=== PATIENT | female | born 1940 | race Caucasian/White ===

== ENCOUNTER → 2018-04-08 07:06 | Outpatient (CLI) | payer MEDICARE, SELFPAY ==
--- NOTE | 2018-04-08 07:06 | DT_ITS ---
This patient was seen during an EMR downtime April 05, 2018 - April 12, 2018. This patient may have a combination of paper and electronic documentation or all paper documentation. All documentation is viewable within the e-chart portion of [facility] for each patient visit.
--- NOTE | 2018-04-08 07:09 | CT_ITS ---
STUDY: CT SOFT TISSUE NECK WITH AND WITHOUT CONTRAST REASON FOR EXAM: Female, 78 years old. Right mandibular mass present for months. RADIATION DOSAGE (If Supplied By Facility): CTDIvol = ( 9.12 ) mGy, DLP = ( 427.01 ) mGycm TECHNIQUE: The patient was scanned in a multi-detector CT scanner. High resolution transaxial imaging was performed prior to and following intravenous administration of 75ml ml of Isovue 370 contrast material. Sagittal and coronal images were reconstructed. Individualized dose optimization techniques were used for this CT. COMPARISON: None. FINDINGS: Normal bilateral parotid glands. Normal bilateral starter mechanic spaces. Normal bilateral parapharyngeal spaces. Normal bilateral carotid spaces. Significant artifacts are seen from teeth fillings obscuring the submandibular regions. There is a small nodule in the subcutaneous fat on the right side of the maxilla measuring about 1.3 cm (images 48-53 series 105). Normal visualized nasopharynx. Normal retropharyngeal space. Normal perivertebral space. Normal visualized bilateral faucial tonsils. The visualized tongue, tongue base and oropharynx are normal. The visualized cervical lymph nodes (levels I-) are within normal size limits, and maintain normal morphology. There is no demonstrated solid or cystic mass lesion. There is no abnormal contrast enhancement. Normal epiglottis, bilateral vallecula and hypopharynx. The pre-epiglottic and paraglottic adipose spaces are normal. Normal visualized bilateral piriform sinuses, aryepiglottic folds, vocal cords, and arytenoid-cricoid articulations. Normal subglottic trachea. Normal bilateral lobes of the thyroid gland. Normal visualized pulmonary apices. Normal visualized paranasal sinuses. There is multilevel degenerative changes of the cervical spine. There is straightening of the cervical spine. CT/Soft Tissue Neck W/WO Contrast IMPRESSION: Small nodule on the right side of the maxilla as described above which may represent prominent node. Otherwise no demonstrated abnormality. Electronically Signed: Sascha Yusuf MD at 11:14 EDT Tel , Service support ,
== END ==
PROVIDERS: Family Provider Internal Medicine; PCP Internal Medicine; Visit Provider Internal Medicine
DX: R22.0 Localized swelling, mass and lump, head (principal)
CPT/HCPCS: 70492; Q9967

== ENCOUNTER 2019-01-14 05:28 | Emergency (ER) | payer MEDICARE, SELFPAY ==
[2019-01-14 05:29] VITALS: BP 141/60; PULSE 65; RESP 18; TEMP 36.9; O2SAT 100; BMI 21.2
--- NOTE | 2019-01-14 05:40 | ED.VIS.GEN ---
History of Present Illness Chief Complaint: Weakness Informant: Patient Narrative: Patient stated she developed diarrhea this evening before bed around late evening. She has had approximately 5 episodes of loose watery diarrhea. She is been having difficulty getting to the bathroom and her is been having to clean her up. She feels weak and fatigued from it. No vomiting. No nausea. No abdominal pain. No recent antibiotics. No history of C. difficile. No sick contacts. No fevers or chills. She had a normal day otherwise yesterday. She is unsure why this happened. She did not eat anything undercooked or that could have caused this per patient. She has not had this before. 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 No chemotherapy during that time. Past Medical History - Allergies and Home Meds Allergies/Adverse Reactions: Allergies No Known Allergies Allergy (Verified 01/14/19 05:35) Primary Care Physician: Kayley Desir MD [Primary Care Provider] - Prior records reviewed: Yes Past Medical History: - - , Surgical History: appendectomy Lives: Spouse/ Significant Other Smoking Status: Never smoker Alcohol: None Drugs: None Review of Systems General: Denies: Chills, Fever, Sweats Eyes: Denies: Visual changes - bilaterally, Diplopia ENT: Denies: Rhinorrhea, Sore throat Cardiovascular: Denies: Chest pain, Palpitations Respiratory: Denies: Dyspnea, Cough, Dyspnea on exertion Gastrointestinal: Reports: Diarrhea. Denies: Abdominal pain, Nausea, Vomiting, Melena, Hematochezia Genitourinary: Denies: Dysuria, Hematuria, Frequency Musculoskeletal: Denies: Back pain, Extremity Pain Skin: Denies: Rash, Wounds Neurological: Reports: Weakness. Denies: Headache, Numbness Physical Exam Vital Signs/Narrative: Vital Signs Temp Pulse Resp BP Pulse Ox 01/14/19 05:29 98.5 F 65 18 141/60 H 100 General: Well nourished, Well developed, No Acute Distress Head: Normocephalic, Atraumatic Eyes: Perrl, EOMI ENT: Moist mucous membranes, No rhinorrhea Neck: Supple, Nontender Cardiovascular: Regular rate, Regular rhythm, No murmurs Respiratory: No distress, CTA bilaterally, Chest nontender Abdomen: Soft, Nontender, Nondistended, Normal bowel sounds Back: Nontender, Normal Inspection Extremities: Nontender, No edema Skin: Normal color, No rash Neurological: Alert, Oriented x3, Cranial nerves II-XII grossly intact, Normal Strength, Normal Sensation Psychological: Normal affect, Normal Mood Diagnostic/Tx/Re-eval - Medical Decision Making Given IV fluids and Imodium, lab work obtained lab work shows no significant leukocytosis. She does have a neutrophilia but no leukocytosis. Likely from the acute diarrhea. I suspect this is viral or food related. No further episodes here. She will continue Imodium as an outpatient. I do not feel she needs further lab work or imaging. She is nontoxic. She was resting comfortably after her liter of fluid. I feel she can be discharged with her family members. They will return if she worsens. I have a low suspicion for C. difficile enterocolitis. She has no abdominal pain ED Disposition - Plan for ED Patient: Diagnosis: Acute diarrhea Instructions: Treating Diarrhea Referrals: Kayley Desir MD [Primary Care Provider] -
[2019-01-14] MEDS: 0.9% Normal Saline 1,000 ML 1000 ML IV (05:47)
[2019-01-14 06:11] LABS: Anion Gap 7 (5-15); BUN 20 mg/dL (7-18); BUN/Creat Ratio 22.7 RATIO (10-20); Calcium,Total 8.5 mg/dL (8.5-10.1); Chloride 107 mmol/L (98-107); Creatinine, Serum 0.88 mg/dL (0.55-1.02); EST Glomerular Filtration Rate 66 mL/min (>60); Est Glom Filt Rate - Afr Amer 80 mL/min (>60); Estimated Creatinine Clearance 49.32 ml/min; Glucose 105 mg/dL (74-106); Potassium 4.4 mmol/L (3.5-5.1); Sodium Level 144 mmol/L (136-145)
[2019-01-14 06:14] LABS: Absolute Lymphocyte Count 0.41 X10^3/ul (0.83-4.51); Absolute Neutrophil Count 8.5 X10^3/uL (2.0-7.7); Basophil# 0.01 X10^3/uL; Basophil% 0.1 % (0-1); Eosinophil# 0.02 X10^3/uL; Eosinophils% 0.2 % (0-5); Hemoglobin 13.6 g/dl (12.0-15.0); Lymphocyte # 0.41 X10^3/ul (4.0); Lymphocyte % 4.4 % (19-41); Mean Corp Hgb Conc 33.2 g/gl (32-36); Mean Corpuscular Hgb 32.9 pg (27.0-32.0); Mean Corpuscular Volume 99.3 fL (81-99); Mean Platelet Vol. 10.6 fl (6.2-12.0); Monocyte# 0.43 X10^3/uL; Monocyte% 4.6 % (0-10); Neutrophil # 8.48 X10^3/uL (2.7-7.7); Neutrophil % 90.6 % (47-70); Platelet Count 154 K/mm3 (150-450); RBC Distribution Width CV 12.7 % (11.6-14.6); RBC Distribution Width SD 45.2 fl (35.1-43.9); Red Blood Count 4.13 M/mm3 (4.2-5.4); White Blood Count 9.4 K/mm3 (4.4-11.0)
[2019-01-14 06:15] LABS: Differential Indicated SCAN CRITERIA MET; POSITIVE COUNT NO; POSITIVE DIFFERENTIAL YES; POSITIVE MORPHOLOGY NO
[2019-01-14 06:58] VITALS: BP 129/53; PULSE 67; RESP 15; O2SAT 97
== END 2019-01-14 06:59 | disposition home or self-care (01) ==
PROVIDERS: Emergency Provider Emergency Medicine; Family Provider Internal Medicine; PCP Internal Medicine
DX: R19.7 Diarrhea, unspecified (principal)
CPT/HCPCS: 80048; 85025; 99285

== ENCOUNTER → 2019-03-22 07:44 | Outpatient (CLI) | payer MEDICARE, SELFPAY ==
[2019-03-22 07:54] VITALS: BP 139/63; PULSE 66; RESP 16; TEMP 36.1; O2SAT 100; BMI 21.9
[2019-03-22] MEDS: Cosyntropin 0.25 MG Vial IM (08:06)
== END ==
PROVIDERS: Family Provider Internal Medicine; PCP Internal Medicine; Referring Provider Internal Medicine; Visit Provider Internal Medicine
DX: R53.83 Other fatigue (principal); R53.1 Weakness
CPT/HCPCS: 36415; 82533; 96372; J0834

== ENCOUNTER → 2019-06-06 12:24 | Outpatient (CLI) | payer MEDICARE, SELFPAY ==
[2019-03-22 07:54] VITALS: BMI 21.9
[2019-06-06 12:31] LABS: Bacteria 0 SEEN /hpf (None Seen)
[2019-06-06 12:36] LABS: Color, Urine Yellow (Yellow); Glucose, Dipstick Normal (Normal); Ketone-Dipstick Negative (Negative); Leukocyte Esterase-Dipstick 25 /ul (Negative); Nitrite-Dipstick Negative (Negative); Occult Blood-Urine 25 /ul (Negative); Protein-Dipstick Negative (Negative); Urine Bilirubin Dipstick Negative (Negative); Urine Clarity Clear (Clear); Urine Urobilinogen Normal (Normal)
[2019-06-06 12:44] LABS: Absolute Lymphocyte Count 0.96 X10^3/uL (0.83-4.51); Absolute Neutrophil Count 4.7 X10^3/uL (2.0-7.7); Basophil# 0.03 X10^3/uL; Basophil% 0.5 % (0-1); Eosinophil# 0.08 X10^3/uL; Eosinophils% 1.2 % (0-5); Hematocrit 40.1 % (37-47); Hemoglobin 13.1 g/dL (12.0-15.0); Lymphocyte # 0.96 X10^3/ul (4.0); Lymphocyte % 14.4 % (19-41); Mean Corp Hgb Conc 32.7 g/dL (32-36); Mean Platelet Vol. 10.9 fl (6.2-12.0); Monocyte# 0.86 X10^3/uL; Monocyte% 12.9 % (0-10); NRBC Flagged by Analyzer 0 % (0-5); Neutrophil % 70.5 % (47-70); Platelet Count 173 K/mm3 (150-450); RBC Distribution Width CV 12.3 % (11.6-14.6); RBC Distribution Width SD 46.5 fl (35.1-43.9); Red Blood Count 3.97 M/mm3 (4.2-5.4); White Blood Count 6.7 K/mm3 (4.4-11.0)
[2019-06-06 12:48] LABS: Mucous, Urine 1+ /hpf (<or=2+); Red Blood Cells-Urine 0-5 SEEN /hpf (0-5); Squamous Epithelial Cells - UA 0-5 SEEN /hpf (5-10); White Blood Cells 0-5 SEEN /hpf (0-5)
[2019-06-06 12:51] LABS: Erythrocyte Sedimentation Rate 2 mm/hr (0-30)
[2019-06-06 13:10] LABS: ALB/GLOB Ratio 1.3 RATIO (0.9-2.4); AST(SGOT) 12 U/L (15-37); Alanine Aminotransfer ALT/SGPT 15 U/L (13-56); Albumin, Serum 3.2 g/dL (3.2-5.0); Alkaline Phosphatase 76 U/L (45-117); Anion Gap 4 (5-15); BUN 20 mg/dL (7-18); BUN/Creat Ratio 23.4 RATIO (10-20); Calcium,Total 8.1 mg/dL (8.5-10.1); Chloride 105 mmol/L (98-107); Creatinine, Serum 0.85 mg/dL (0.55-1.02); EST Glomerular Filtration Rate 68 mL/min (>60); Est Glom Filt Rate - Afr Amer 82 mL/min (>60); Globulin 2.5 g/dL (2.2-4.2); Glucose 88 mg/dL (74-106); Potassium 4.2 mmol/L (3.5-5.1); Protein, Total 5.7 g/dL (6.4-8.2); Sodium Level 141 mmol/L (136-145); Thyroid Stim Hormone (TSH) 1.69 uIU/mL (0.358-3.74)
== END ==
PROVIDERS: Family Provider Internal Medicine; PCP Internal Medicine; Referring Provider Internal Medicine; Visit Provider Internal Medicine
DX: R53.83 Other fatigue (principal)
CPT/HCPCS: 80053; 81001; 84443; 85025; 85652

== ENCOUNTER → 2019-07-20 12:10 | Outpatient (CLI) | payer MEDICARE, SELFPAY ==
[2019-03-22 07:54] VITALS: BMI 21.9
--- NOTE | 2019-07-20 12:24 | MRI_ITS ---
STUDY: MRI BRAIN WITH AND WITHOUT CONTRAST (ATTENTION PITUITARY GLAND) REASON FOR EXAM: Female, 79 years old. Follow-up pituitary adenoma. TECHNIQUE: Standardized multiplanar fat and water weighted pulse sequences were obtained. 10 IV Dotarem was administered for the contrast portion of the examination. COMPARISON: 10/11/2013 FINDINGS: Slight increase in the size of the mass of decreased enhancement within the left side of the pituitary gland consistent with enlarging pituitary adenoma. There is minimal increase in size from 0.9 x 1.0 x 1.1 cm to 1.2 x 1.5 x 1.2 cm. There is some suprasellar extension with abutment of the undersurface of the optic chiasm. Normal infundibular stalk and suprasellar cistern. Normal optic chiasm and hypothalamus. Normal size of the ventricles and extra-axial spaces for the patient's age. Normal white matter tracts of the supratentorial brain. There is no evidence for recent intracranial ischemia or other cause of cytotoxic edema on diffusion weighted imaging (DWI). Normal bilateral basal ganglia. Normal thalami. Normal flow voids within the major intracranial circulation suggesting patency by spin echo criteria. Normal venous enhancement. There is no enhancing intra-axial or extra-axial abnormality. There is no extra-axial fluid accumulation. Normal tectal plate and pineal gland. Normal midbrain, christophe and medulla. Normal cerebellum. Normal basal cisterns. Normal bilateral temporal bones. Normal bilateral internal auditory canals. No demonstrated orbital abnormality, within the constraints of a routine brain study. Normal visualized paranasal sinuses. Normal calvarium and skull base. Normal visualized upper cervical spine. Normal visualized soft tissue structures. MRI/Brain W/WO Contrast IMPRESSION: Enlarging pituitary adenoma as described above. Electronically Signed: Timothy Cifuentes MD at 15:27 EDT Tel , Service support ,
== END ==
PROVIDERS: Family Provider Internal Medicine; PCP Internal Medicine; Referring Provider Internal Medicine; Visit Provider Internal Medicine
DX: D35.3 Benign neoplasm of craniopharyngeal duct (principal); D35.2 Benign neoplasm of pituitary gland
CPT/HCPCS: 70553; A9575

== ENCOUNTER → 2019-07-27 12:59 | Outpatient (CLI) | payer MEDICARE, SELFPAY ==
[2019-03-22 07:54] VITALS: BMI 21.9
--- NOTE | 2019-07-27 13:06 | ECHOD_ITS ---
Reason For Study: Abn EKG Procedure This was a 2D Doppler, Color Flow transthoracic echocardiogram. Myocardial strain analysis was performed in this exam to aid in the assessment of cardiac function. Exam performed in department. Left Ventricle Normal size and thickness. The estimated ejection fraction is 65 %. Stage 1 diastolic dysfunction. No regional wall motion abnormalities noted. Right Ventricle Normal size and thickness. Normal systolic function. Atria Normal left atrium. Normal right atrium. Normal atrial septum. Bubble contrast study negative for right to left interatrial shunt. Mitral Valve The mitral valve is structurally normal. No prolapse or stenosis seen. Mild (1+) mitral valve insufficiency. Tricuspid Valve Normal tricuspid valve. Trivial tricuspid valve insufficiency. Right ventricular systolic pressure estimated to be 25 mmHg. Aortic Valve Normal aortic valve. Trisinus/trileaflet aortic valve. Pulmonic Valve Normal pulmonic valve. Great Vessels Normal aortic root. Normal arch. Normal inferior vena cava. Inferior vena cava collapse with sniff. Pericardium/Pleural No pericardial effusion. Medication Performed a rapid injection of agitated mix of 9 cc saline and 1cc air to assess for atrial septal defect. MMode/2D Measurements & Calculations LVIDd: 3.6 cm IVSd: 1.1 cm Ao root diam: 2.9 cm LVIDs: 2.5 cm LVPWd: 0.91 cm RVDd: 2.4 cm FS: 31.0 % LAV(MOD-bp): 29.1 ml LVAd ap4: 22.1 cm2 SV(MOD-sp4): 34.0 ml LAV(MOD-bp) Indexed: 17.9 ml/m2 EDV(MOD-sp4): 60.5 ml LAV(MOD-sp2): 42.4 ml EDV(sp4-el): 62.5 ml LAV(MOD-sp4): 17.1 ml LVAs ap4: 12.8 cm2 ESV(MOD-sp4): 26.5 ml ESV(sp4-el): 25.8 ml EF(MOD-sp4): 56.2 % EF(sp4-el): 58.7 % SV(sp4-el): 36.7 ml LA A4 area: 8.7 cm2 LA dimension(2D): 3.3 cm RA A4 area: 7.3 cm2 Doppler Measurements & Calculations MV E max krishna: 60.0 cm/sec Lat Peak E' Krishna: 3.7 cm/sec Med Peak E' Krishna: 3.2 cm/sec MV A max krishna: 89.8 cm/sec E/E' lat: 16.3 E/E' med: 19.0 MV E/A: 0.67 Ao V2 max: 115.4 cm/sec LV V1 max: 74.7 cm/sec PA V2 max: 79.6 cm/sec Ao max P.3 mmHg LV V1 max P.2 mmHg Ao V2 mean: 88.6 cm/sec Ao mean P.3 mmHg Ao V2 VTI: 27.4 cm TR max krishna: 227.7 cm/sec TR max P.7 mmHg Interpretation Summary The estimated ejection fraction is 65 %. Stage 1 diastolic dysfunction. Bubble contrast study negative for right to left interatrial shunt. Mild (1+) mitral valve insufficiency. Trivial tricuspid valve insufficiency. Right ventricular systolic pressure estimated to be 25 mmHg. There is no comparison study available. Ordering Physician: Kayley Desir Referring Physician: Kayley Desir Performed By: Consuelo Fischer, KALE, RVT
== END ==
PROVIDERS: Family Provider Internal Medicine; PCP Internal Medicine; Referring Provider Internal Medicine; Visit Provider Internal Medicine
DX: R94.31 Abnormal electrocardiogram [ECG] [EKG] (principal)
CPT/HCPCS: 93306; A4216

== ENCOUNTER → 2019-09-06 14:03 | Outpatient (CLI) | payer MEDICARE, SELFPAY ==
[2019-03-22 07:54] VITALS: BMI 21.9
[2019-09-06 14:20] LABS: Absolute Lymphocyte Count 1.21 X10^3/uL (0.83-4.51); Absolute Neutrophil Count 5.9 X10^3/uL (2.0-7.7); Basophil# 0.06 X10^3/uL; Basophil% 0.7 % (0-1); Eosinophil# 0.12 X10^3/uL; Eosinophils% 1.4 % (0-5); Hemoglobin 11.5 g/dL (12.0-15.0); Lymphocyte # 1.21 X10^3/ul (4.0); Lymphocyte % 14.5 % (19-41); Mean Corp Hgb Conc 31.9 g/dL (32-36); Mean Corpuscular Hgb 32.4 pg (27.0-32.0); Mean Corpuscular Volume 101.4 fL (81-99); Mean Platelet Vol. 10.4 fl (6.2-12.0); Monocyte# 1.05 X10^3/uL; Monocyte% 12.6 % (0-10); NRBC Flagged by Analyzer 0 % (0-5); Neutrophil # 5.86 X10^3/uL (2.7-7.7); Neutrophil % 70.3 % (47-70); Platelet Count 232 K/mm3 (150-450); RBC Distribution Width SD 48.7 fl (35.1-43.9); Red Blood Count 3.55 M/mm3 (4.2-5.4); White Blood Count 8.3 K/mm3 (4.4-11.0)
[2019-09-06 14:31] LABS: Anion Gap 4 (5-15); BUN 14 mg/dL (7-18); BUN/Creat Ratio 18.2 RATIO (10-20); Calcium,Total 8.6 mg/dL (8.5-10.1); Chloride 106 mmol/L (98-107); Creatinine, Serum 0.77 mg/dL (0.55-1.02); EST Glomerular Filtration Rate 77 mL/min (>60); Est Glom Filt Rate - Afr Amer 93 mL/min (>60); Glucose 116 mg/dL (74-106); Potassium 3.9 mmol/L (3.5-5.1); Sodium Level 140 mmol/L (136-145)
== END ==
PROVIDERS: Family Provider Internal Medicine; PCP Internal Medicine; Referring Provider Internal Medicine; Visit Provider Internal Medicine
DX: R53.1 Weakness (principal)
CPT/HCPCS: 80048; 84484; 85025

== ENCOUNTER → 2020-01-23 12:12 | Outpatient (CLI) | payer MEDICARE, SELFPAY ==
[2019-03-22 07:54] VITALS: BMI 21.9
[2020-01-23 12:32] LABS: Absolute Lymphocyte Count 1.33 X10^3/uL (0.83-4.51); Basophil# 0.04 X10^3/uL; Basophil% 0.7 % (0-1); Eosinophil# 0.11 X10^3/uL; Eosinophils% 1.8 % (0-5); Hematocrit 41.2 % (37-47); Hemoglobin 13.2 g/dL (12.0-15.0); Lymphocyte # 1.33 X10^3/ul (4.0); Lymphocyte % 21.7 % (19-41); Mean Corpuscular Hgb 32.2 pg (27.0-32.0); Mean Corpuscular Volume 100.5 fL (81-99); Mean Platelet Vol. 10.3 fl (6.2-12.0); Monocyte# 0.63 X10^3/uL; Monocyte% 10.3 % (0-10); NRBC Flagged by Analyzer 0 % (0-5); Neutrophil % 65.2 % (47-70); Platelet Count 177 K/mm3 (150-450); RBC Distribution Width CV 13.2 % (11.6-14.6); RBC Distribution Width SD 48.7 fl (35.1-43.9); White Blood Count 6.1 K/mm3 (4.4-11.0)
[2020-01-23 12:34] LABS: Erythrocyte Sedimentation Rate 5 mm/hr (0-30)
[2020-01-23 12:43] LABS: CRP < 2.90 mg/L (0.0-3.0)
== END ==
PROVIDERS: PCP Internal Medicine; Referring Provider Internal Medicine; Visit Provider Internal Medicine
DX: M25.562 Pain in left knee (principal)
CPT/HCPCS: 85025; 85652; 86140

== ENCOUNTER → 2020-04-05 12:24 | Outpatient (CLI) | payer MEDICARE, SELFPAY ==
[2019-03-22 07:54] VITALS: BMI 21.9
--- NOTE | 2020-04-05 12:28 | BI_ITS ---
MAMMOGRAPHY - BILATERAL SCREENING REASON FOR EXAM: Female, 80 years old. Routine annual screening examination. PERTINENT HISTORY: Non-contributory. Bilateral breast implants. TECHNIQUE: Digital bilateral breast amrik (3D mammographic acquisition) in the CC and MLO projections. 2-D mediolateral oblique (MLO) and craniocaudad (CC) views of both breasts were obtained. CAD: Full Field Digital Mammography with Computer Added Detection was performed. COMPARISON: No comparison mammograms available at this time. If any prior films become available, an addendum to this report can be generated. FINDINGS: Breast Composition: There are scattered areas of fibroglandular density. There are no dominant masses or suspicious calcifications. Bilateral breast implants are seen. There is focal bulging of the right breast implant along its inferior the medial aspect of the implant. There is evidence of calcification along the margin of the right breast implant. No other significant abnormalities are identified. BI/SCREEN MAMM (CAD) W/AMRIK BILAT IMPRESSION: Bilateral breast implants with focal bulging of the right breast implant along its inferior medial aspect. Calcification along the margin of the right breast implant. The fibroglandular tissue is unremarkable. ASSESSMENT CATEGORY: BIRADS Category 2: Benign. A letter regarding these results will be sent to the patient by the facility within 30 days. Approximately 10% of breast cancers are not detected by mammography. A normal mammogram should not delay biopsy of a clinically suspicious abnormality. [id number] Electronically Signed: Rohan Orr, at 13:55 EDT , Service support ,
--- NOTE | 2020-04-05 12:33 | BD_ITS ---
STUDY: DUAL ENERGY X-RAY ABSORPTIOMETRY / DXA REASON FOR EXAM: Female, 80 years old. 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 COMPARISON: Comparison is made with prior examination of March 13, 2015. FINDINGS: Lumbar Spine (L1-L4): g/cm2 (1.059) / T-score (-1.0) / Z-score (0.8) Findings are suggestive of osteopenia with a low fracture risk. Left Femur Total: g/cm2 (0.630) / T-score (-3.0) / Z-score (-1.0) Left Femoral Neck: g/cm2 (0.674) / T-score (-2.6) / Z-score (-0.5) Right Femur Total: g/cm2 (0.714) / T-score (-2.3) / Z-score (-0.3) Right Femoral Neck: g/cm2 (0.704) / T-score (-2.4) / Z-score (-0.3) The T-Scores on the most recent prior examination were: Lumbar Spine (L1-L4): There has been improvement of bone density since the previous examination. Left Femur Total: which represents a worsening of 2.9%. Right Femur Total: which represents a worsening of 1%. BD/Dexa Bone Density Study IMPRESSION: The patient is considered osteoporotic as outlined below according to World Ismael Organization (WHO) criteria with a high fracture risk. There has been worsening of bone density since the previous examination. Reference Information: The T-score is the number of standard deviations above or below the standard which is normal for young adults at their peak bone mineral density. The World Health Organization (WHO) interprets the T-scores as follows: Above -1 Normal bone density Between -1 and -2.5 Osteopenia Equal to / or below -2.5 Osteoporosis As a practical clinical guideline, osteopenia may be graded as follows: Mild -1 through -1.5 Moderate -1.6 through -2.0 Severe -2.1 through -2.4 The Z-score is the number of standard deviations above or below age-matched controls. A Z-score of less than -1.5 would be considered abnormal. References: 1. NIH Osteoporosis and Related Bone Diseases http://www.osteo.org 2. International Society for Clinical Densitometry http://www.iscd.org 3. National Osteoporosis Foundation http://www.nof.org Electronically Signed: Rohan Orr, at 13:51 EDT , Service support ,
== END ==
PROVIDERS: Family Provider Internal Medicine; PCP Internal Medicine; Referring Provider Internal Medicine; Visit Provider Internal Medicine
DX: Z78.0 Asymptomatic menopausal state (principal); Z12.31 Encounter for screening mammogram for malignant neoplasm of breast
CPT/HCPCS: 77063; 77067; 77080

== ENCOUNTER → 2020-04-16 08:04 | Outpatient (CLI) | payer MEDICARE, SELFPAY ==
[2019-03-22 07:54] VITALS: BMI 21.9
[2020-04-16 08:14] VITALS: BP 121/67; PULSE 82; RESP 18; O2SAT 97; BMI 20.9
[2020-04-16] MEDS: 0.9% NaCl IVPB Med Flush (250 mL) 15 ML IV (08:18)
[2020-04-16] MEDS: 0.9% NaCl Peripheral Flush Adult/Peds IV (08:18)
[2020-04-16] MEDS: Zoledronic Acid 5 MG 100 ML 400 MG IV (08:25)
[2020-04-16 08:51] VITALS: BP 125/60; PULSE 69; RESP 16; O2SAT 100
== END ==
PROVIDERS: PCP Internal Medicine; Referring Provider Internal Medicine; Visit Provider Internal Medicine
DX: M81.0 Age-related osteoporosis without current pathological fracture (principal)
CPT/HCPCS: 96365; J7050; A4216; J3489

== ENCOUNTER → 2020-06-18 17:11 | Outpatient (CLI) | payer MEDICARE, SELFPAY ==
[2020-06-18 15:29] VITALS: BMI 20.9
--- NOTE | 2020-06-18 15:45 | EMB_PTH ---
PATIENT: MARICRUZ HERBERT LOC: [facility] U#:[id number] AGE/SX: 85/F ROOM: RE06/18/[address]: CALLUM Stein : 1940 BED: DIS: SPEC #: [id number] RECD: 06/18/20 16:54 STATUS: ROB CECY #: [id number] LISETTE: 06/18/20 15:[address]: Prachi Gutierrez NP DEPT: SURGICAL PATHOLOGY RECD BY: Faustino Valdez ENTERED: 06/19/20 09:25 SP TYPE: ENDOM BX/C MICHAEL DR: Dr. Kayley Desir MD Tissues: Endometrium, NOS Procedures: Surgery Specimen Level IV HEADER OPERATION: Endometrial biopsy PRE-OP DIAGNOSIS: Postmenopausal bleeding TISSUE SUBMITTED: Endometrial biopsy MICROSCOPIC DIAGNOSIS Endometrial biopsy: Fragments of weakly proliferative endometrium with glandular and stromal breakdown. See comment. TIMOTEO:carmelita 8/19/20 COMMENT Correlation with clinical findings and appropriate follow up are necessary. MICROSCOPIC DESCRIPTION Slides are reviewed. GROSS DESCRIPTION Received is one container labeled with the patient's name and not further designated. The specimen consists of multiple fragments of hemorrhagic soft tissue that in aggregate measure 2 x 1 x 0.1 cm. The specimen is totally submitted in one cassette. / SJ:rg 06/19/20 TC:5 [facility]: [id number]
[2020-06-22 13:56] LABS: HPV APTIMA, High Risk Negative (Negative)
== END ==
PROVIDERS: PCP Internal Medicine; Referring Provider Nurse Practitioner Women's Health; Visit Provider Nurse Practitioner Women's Health
DX: N95.0 Postmenopausal bleeding (principal); Z12.4 Encounter for screening for malignant neoplasm of cervix; M81.0 Age-related osteoporosis without current pathological fracture; R87.619 Unspecified abnormal cytological findings in specimens from cervix uteri
CPT/HCPCS: 87624; 88175; 88305; G0145

== ENCOUNTER → 2020-06-19 10:34 | Outpatient (CLI) | payer MEDICARE, SELFPAY ==
[2020-06-18 15:29] VITALS: BMI 20.9
== END ==
PROVIDERS: PCP Internal Medicine; Referring Provider Nurse Practitioner Women's Health; Visit Provider Nurse Practitioner Women's Health
DX: N95.0 Postmenopausal bleeding (principal); M81.0 Age-related osteoporosis without current pathological fracture

== ENCOUNTER → 2020-06-22 13:45 | Outpatient (CLI) | payer MEDICARE, SELFPAY ==
[2020-04-16 08:14] VITALS: BMI 20.9
[2020-06-18 15:29] VITALS: BMI 20.9
--- NOTE | 2020-06-22 13:46 | US_ITS ---
STUDY: ULTRASOUND OF THE FEMALE PELVIS - COMPLETE REASON FOR EXAM: Female, 80 years old. SCREENING FOR CERVICAL CA, POST MENOPAUSAL BLEEDING PASSING CLOTS 1.5 WEEKS AGO TECHNIQUE: Transabdominal real-time exam grayscale image documentation. Transvaginal ultrasound was required for adequate visualization of the uterus. TECHNICAL QUALITY: Adequate. COMPARISON: None. FINDINGS: The uterus is retroverted and is tilted to the right side of the pelvis. The uterus measures 7.8 x 4.7 x 3.7 cm. Multiple small nabothian cysts of the endocervix. The endometrium measures 5 mm in thickness, and is hyperechoic. There is no demonstrated endometrial mass. There is no demonstrated myometrial mass. I.U.D. - The patient does not have an I.U.D. The right ovary is not visualized secondary to bowel gas. The left ovary is not visualized secondary to bowel gas. There is no fluid in the cul-de-sac. Empty urinary bladder. US/Transvaginal Non- IMPRESSION: Normal uterus. Multiple small nabothian cysts of the cervix. Nonvisualized ovaries secondary to atrophy and/or bowel gas. No additional adnexal masses or free fluid. Electronically Signed: Nalini Kevin MD at 16:09 EDT , Service support ,
--- NOTE | 2020-06-22 13:48 | US_ITS ---
STUDY: ULTRASOUND OF THE FEMALE PELVIS - COMPLETE REASON FOR EXAM: Female, 80 years old. SCREENING FOR CERVICAL CA, POST MENOPAUSAL BLEEDING PASSING CLOTS 1.5 WEEKS AGO TECHNIQUE: Transabdominal real-time exam grayscale image documentation. Transvaginal ultrasound was required for adequate visualization of the uterus. TECHNICAL QUALITY: Adequate. COMPARISON: None. FINDINGS: The uterus is retroverted and is tilted to the right side of the pelvis. The uterus measures 7.8 x 4.7 x 3.7 cm. Multiple small nabothian cysts of the endocervix. The endometrium measures 5 mm in thickness, and is hyperechoic. There is no demonstrated endometrial mass. There is no demonstrated myometrial mass. I.U.D. - The patient does not have an I.U.D. The right ovary is not visualized secondary to bowel gas. The left ovary is not visualized secondary to bowel gas. There is no fluid in the cul-de-sac. Empty urinary bladder. US/Pelvic (Non ) IMPRESSION: Normal uterus. Multiple small nabothian cysts of the cervix. Nonvisualized ovaries secondary to atrophy and/or bowel gas. No additional adnexal masses or free fluid. Electronically Signed: Nalini Kevin MD at 16:09 EDT , Service support ,
== END ==
LOC: US 13:46
PROVIDERS: PCP Internal Medicine; Referring Provider Obstetrics & Gynecology; Visit Provider Obstetrics & Gynecology
DX: N95.0 Postmenopausal bleeding (principal); M81.0 Age-related osteoporosis without current pathological fracture; Z12.4 Encounter for screening for malignant neoplasm of cervix
CPT/HCPCS: 76830; 76856

== ENCOUNTER 2020-12-19 16:14 | Outpatient (RCR) | payer MEDICARE, SELFPAY ==
[2020-06-18 15:29] VITALS: BMI 20.9
== END 2020-12-19 23:59 ==
LOC: IMMUN 16:14
PROVIDERS: PCP Internal Medicine; Referring Provider Family Medicine; Visit Provider Family Medicine
DX: Z23 Encounter for immunization (principal)
CPT/HCPCS: 0011A; 0012A; 91301

== ENCOUNTER → 2021-01-21 13:14 | Outpatient (CLI) | payer MEDICARE, SELFPAY ==
[2020-06-18 15:29] VITALS: BMI 20.9
--- NOTE | 2021-01-21 13:31 | MRI_ITS ---
STUDY: CT RIGHT WRIST WITHOUT CONTRAST REASON FOR EXAM: Female, 81 years old. R THUMB MASS -- H/O LYMPHOMA TECHNIQUE: Transaxial CT imaging of the wrist was performed. Sagittal and coronal images were reconstructed. COMPARISON: None. FINDINGS: A small joint effusion is present in the MCP joint of the thumb. No mass or cyst is present. No fractures are seen. No active bone marrow edema is present. No aggressive marrow replacement process is present. Small benign intraosseous cysts are present in the head of the third metacarpal bone. There is moderate to severe narrowing of the CMC joint of the thumb with reactive signal and subchondral cysts on both sides of the articulation and a small to moderate size joint effusion. There is also mild lateral subluxation of the carpal bone of the thumb in relation to the joint. Small wrist joint effusion noted. No suspicious or focal enhancement of the bony or soft tissue structures is demonstrated on the current study. Minimal subcutaneous edema is present over the MCP joint of the thumb. Normal visualized distal radius and ulna. Normal distal radioulnar Articulation (DRUJ). Normal carpal bones. Normal radiocarpal, intercarpal and midcarpal articulations. Normal pisotriquetral articulation. Normal second through fifth carpometacarpal articulations. Normal remaining visualized metacarpal bones. There is no demonstrated soft tissue abnormality. MRI/Upper Ext Joint Only W/WO Cont IMPRESSION: 1. 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 3. No mass or ganglion cyst or infiltrative process is present. 4. Small wrist joint effusion Electronically Signed: Jourdan Palma MD at 23:08 EDT , Service support ,
[2021-01-21 14:31] LABS: CREATININE FINGERSTICK 0.9 mg/dL (0.55-1.02); EGFR FINGERSTICK > 60.0000 mL/min (>60)
== END ==
PROVIDERS: PCP Internal Medicine; Referring Provider Orthopaedic Surgery; Visit Provider Orthopaedic Surgery
DX: D48.1 Neoplasm of uncertain behavior of connective and other soft tissue (principal); M81.0 Age-related osteoporosis without current pathological fracture
CPT/HCPCS: 73223; A9575

== ENCOUNTER 2022-11-29 15:05 | Inpatient (IN) | payer MEDICARE, SELFPAY ==
[2022-11-29 15:05] VITALS: BP 151/77; PULSE 70; RESP 16; TEMP 35.8; O2SAT 94; BMI 23.1
--- NOTE | 2022-11-29 15:16 | RAD_ITS ---
INDICATION: fall/injury L hip EXAMINATION/TECHNIQUE: X-RAY - XR Pelvis 1 or 2 Views COMPARISON: None. FINDINGS: There is a left femoral neck fracture associated with superior migration of the distal femur. No dislocation is visualized. There are degenerative changes of the lower lumbar spine. There is a nonspecific bowel gas pattern. RAD/Pelvis 1 or 2 Views IMPRESSION: Left femoral neck fracture. Electronically Signed: Rebeca Perez MD at 16:20 EST ,
--- NOTE | 2022-11-29 15:17 | RAD_ITS ---
INDICATION: fall EXAMINATION/TECHNIQUE: X-RAY - XR Chest 1 View COMPARISON: June 23, 2016. FINDINGS: LINES/DEVICES: None. LUNGS: No consolidation, edema or effusion. No pneumothorax. There are bilateral peripherally calcified breast implants projecting over the thorax. MEDIASTINUM AND CARDIOVASCULAR STRUCTURES: Cardiac silhouette not enlarged. Central airways and mediastinal contour are unremarkable. BONES AND SOFT TISSUES: Unremarkable. RAD/Chest 1 View IMPRESSION: No acute cardiopulmonary process. Electronically Signed: Rebeca Perez MD at 16:19 EST ,
--- NOTE | 2022-11-29 15:17 | EKG12_ITS ---
Test Reason : Blood Pressure : / mmHG Vent. Rate : 083 BPM Atrial Rate : 083 BPM P-R Int : 146 ms QRS Dur : 086 ms QT Int : 390 ms P-R-T Axes : 056 -09 098 degrees QTc Int : 458 ms Sinus rhythm with occasional Premature ventricular complexes Low voltage QRS Septal infarct , age undetermined Abnormal ECG Confirmed by KELLY HANNAH, MARGE ([id number]), material expeditor VIRA WHITNEY ([id number]) on 12/01/2022 9:42:02 AM Referred By: MARISSA Confirmed By:MARGE MENDOZA MD
--- NOTE | 2022-11-29 15:18 | EDS_ITS ---
HPI HPI - Fall History of Present Illness Chief Complaint: Fall Informant: patient and EMS Occured/Mechanism Occurred: Today (JPTA) Narrative: Trying to help move a sofa, when her started moving it from the other and she lost her footing and fell to her left side. Usually ambulates: Without assistance Pain/Injury Location: Left hip/thigh Quality of Pain: Aching Current Severity: Severe Maximum Severity: Severe Worsened by: Movement Relieved by: Fentanyl 50 mcg given by EMS IM; remaining still Associated Symptoms Associated Symptoms: Positive for Loss of function (LLE) and Inability to ambulate; Negative for Parasthesias, Weakness, Loss of consciousness or Amnesia Narrative Narrative: Patient fell to her left side. Did not hit her head or lose consciousness. Not able to get up at home and called EMS, she is unsure why. She arrives in pain, lying left lateral decubitus on the EMS cot. [facility] Medical History h/o back cancer H/O malignant neoplasm of brain Home Medications multivitamin with minerals 1 ea PO DAILY 01/14/19 [History Last Taken Unknown] coenzyme Q10 30 mg capsule (CoQ-10) 30 mg PO DAILY 11/29/22 [History Last Taken Unknown] paroxetine HCl 30 mg tablet 30 mg PO DAILY 11/29/22 [History Last Taken Unknown] Allergy/AdvReac Type Severity Reaction Status Date / Time No Known Allergies Allergy Verified 11/29/22 15:17 Surgical History History of tonsillectomy Social History household members: spouse number of children: 5 current occupational status: retired history of recent travel: No Smoking Status: Never smoker alcohol intake: never substance use type: does not use well-balanced diet: daily or most days caffeine: Yes what type of physical activity do you participate in: none seatbelt use: always do you feel safe at home: Yes additional social history: - Brown GIRAL[employer] ROS ED Constitutional Constitutional ED: Denies chills or fever(s) Eyes Eyes: Denies change in vision or diplopia ENT ENT ED: Denies ear pain, epistaxis, facial pain or rhinorrhea Cardiovascular Cardiovascular: Denies chest pain or palpitations Respiratory/Chest Respiratory/Chest: Denies cough or dyspnea Gastrointestinal Gastrointestinal: Denies abdominal pain, diarrhea, melena, nausea or vomiting Genitourinary Genitourinary ED: Denies dysuria or hematuria Musculoskeletal Musculoskeletal: Reports back pain and extremity pain; Denies neck pain Integumentary Denies abscess, Abrasions, laceration or rash Neurologic Neurologic: Denies confusion, headache(s), paresthesias or weakness EXAM Physical Exam Const Vital Signs: 11/29/22 15:05 11/29/22 15:17 Temperature 96.4 F L Temperature Source Temporal Pulse Rate 70 Respiratory Rate 16 Respiratory Effort Normal Blood Pressure 151/77 H Blood Pressure Mean 101 Pulse Ox 94 Oxygen Delivery Method Room Air Positive well nourished and well developed General Appearance ED: well developed and NAD HEENT Reports nasal mucous membranes and turbinates normal atraumatic Face and Sinus: Negative for facial tenderness Eyes PERRL and EOMs intact bilaterally Visual Acuity: other Other Details: no entrapment or pain with extraocular movements Neck full ROM and supple General: Negative for tenderness Chest Wall inspection of chest normal and palpation of chest normal Chest: symmetrical chest wall rise; Negative for crepitus or tenderness Resp normal respiratory effort and clear to auscultation bilaterally Percussion: other equal BS bilat Cardio no murmurs Rate: regular rate Rhythm: regular rhythm GI normal to inspection, nondistended, normoactive bowel sounds, soft to palpation and non-tender Back/Spine Back/Spine Narrative: Limited range of motion due to pain in left hip Cervical Spine: Negative for cervical spine tenderness Thoracic Spine / Upper Back: Negative for thoracic spinal tenderness Lumbar Spine / Lower Back: Negative for lumbar spinal tenderness Extremity normal to inspection Extremity Narrative: Tender left proximal femur and greater trochanter. Pelvis stable to AP compression and nontender. Severe pain in the left hip area radiating down to the left knee with any rotation at the hip joint. Limited range of motion at the left knee due to pain in the femur, no knee tenderness when not moving. No distal femur tenderness. All compartments of the left thigh are soft and nondistended. There are no deformities, however the patient is lying left lateral decubitus flexed at the knees. Otherwise full range of motion throughout all joints without any difficulty including left hand where there is a laceration at the tip of the left index finger, and both ankles and feet. General Extremety ED: Yes tenderness Neuro oriented x3, CN's II-XII intact bilaterally, moves all extremities, no focal motor deficits and no sensory deficits noted Cullen Coma Scale: document GCS findings Spontaneous Obeys Commands Oriented 15 Sensorium / Orientation: awake and alert Psych mental status grossly normal and thought process normal Skin Skin Narrative: Partial-thickness 0.5 cm laceration to the tip of the left index finger, it is cutaneous in its depth. It was bandaged by EMS, there is no active bleeding. Nontender. No bony tenderness. No nail injury or subungual hematoma. Lesions: no lesions Rashes: no rashes MDM MDM MDM Narrative Medical decision making narrative: High suspicion for left hip fracture. 1 view pelvis and 4 view left femur films all obtained and consistent with a left subcapital femoral neck fracture. Total knee arthroplasty is in place and unremarkable. Patient's pain was controlled with morphine. Preoperative work-up obtained including labs, 1 view chest x-ray which is negative/normal on my interpretation, no pneumonia, and obtained a preoperative EKG which is unremarkable my interpretation. Discussed with Dr. Heller, plan for operative repair tomorrow discussed with hospitalist Dr. Masterson as well. Lab Data Attestation: I reviewed the patient's lab results. Labs: Laboratory Results - last 24 hr 11/29/22 11/29/22 15:15 15:15 WBC 6.7 RBC 4.30 Hgb 13.5 Hct 42.2 MCV 98.1 MCH 31.4 MCHC 32.0 RDW Std Deviation 48.0 H RDW Coeff of Saundra 13.3 Plt Count 185 MPV 10.7 Immature Gran % (Auto) 0.100 Neut % (Auto) 62.4 Lymph % (Auto) 28.3 [place] % (Auto) 7.3 Eos % (Auto) 1.5 Baso % (Auto) 0.4 Absolute Neuts (auto) 4.2 Absolute Lymphs (auto) 1.90 Nucleated RBC % 0 Sodium 142 Potassium 3.7 Chloride 104 Carbon Dioxide 29.0 Anion Gap 9 BUN 12 Creatinine 0.96 Estim Creat Clear Calc 40.66 Est GFR (MDRD) Af Amer 71 Est GFR (MDRD) Non-Af 59 L BUN/Creatinine Ratio 12.4 Glucose 125 H Calcium 9.1 Radiography Diagnostic Testing: Clinical Impression(s) from Imaging Studies Pelvis X-Ray 11/29/22 15:16 IMPRESSION: Left femoral neck fracture. Electronically Signed: Rebeca Perez MD at 16:20 EST , Chest X-Ray 11/29/22 15:17 IMPRESSION: No acute cardiopulmonary process. Electronically Signed: Rebeca Perez MD at 16:19 EST , Femur X-Ray 11/29/22 15:55 IMPRESSION: Femoral neck fracture. Electronically Signed: Rebeca Perez MD at 16:25 EST , Rhythm Strip Rhythm Strip: Sinus Rhythm Rate: 70 Ectopy: PVC(s) EKG Initial EKG: Attestation: I personally reviewed and interpreted this EKG as follows: Interpretation: Sinus Rhythm and No Acute Injury Pattern Discharge Plan Dx/Rx/DC Orders Clinical Impression: Closed fracture of left hip, Fall Disposition Disposition: Acute Care [facility]
[2022-11-29] MEDS: Ondansetron 4 MG/2 ML Vial IV (15:23)
[2022-11-29] MEDS: Morphine 4 MG/ML Syringe IV ×2 (15:23→22:15)
[2022-11-29 15:29] LABS: Absolute Neutrophil Count 4.2 X10^3/uL (2.0-7.7); Basophil# 0.03 X10^3/uL; Basophil% 0.4 % (0-1); Eosinophils% 1.5 % (0-5); Hematocrit 42.2 % (37-47); Hemoglobin 13.5 g/dL (12.0-15.0); Lymphocyte % 28.3 % (19-41); Mean Corpuscular Hgb 31.4 pg (27.0-32.0); Mean Corpuscular Volume 98.1 fL (81-99); Mean Platelet Vol. 10.7 fl (6.2-12.0); Monocyte# 0.49 X10^3/uL; Monocyte% 7.3 % (0-10); NRBC Flagged by Analyzer 0 % (0-5); Neutrophil # 4.19 X10^3/uL (2.7-7.7); Neutrophil % 62.4 % (47-70); Platelet Count 185 K/mm3 (150-450); RBC Distribution Width CV 13.3 % (11.6-14.6); White Blood Count 6.7 K/mm3 (4.4-11.0)
[2022-11-29 15:49] LABS: Anion Gap 9 (5-15); BUN 12 mg/dL (7-18); BUN/Creat Ratio 12.4 RATIO (10-20); Calcium,Total 9.1 mg/dL (8.5-10.1); Chloride 104 mmol/L (98-107); Creatinine, Serum 0.96 mg/dL (0.55-1.02); EST Glomerular Filtration Rate 59 mL/min (>60); Est Glom Filt Rate - Afr Amer 71 mL/min (>60); Estimated Creatinine Clearance 40.66 ml/min; Glucose 125 mg/dL (74-106); Potassium 3.7 mmol/L (3.5-5.1); Sodium Level 142 mmol/L (136-145)
--- NOTE | 2022-11-29 15:55 | RAD_ITS ---
INDICATION: fall/injury EXAMINATION/TECHNIQUE: X-RAY - LEFT XR Femur 4 VIEWS COMPARISON: None. FINDINGS: There is a femoral neck fracture with superior migration of the distal femur. There is a total knee arthroplasty in place. No dislocation is seen. RAD/Femur Min 2 Views IMPRESSION: Femoral neck fracture. Electronically Signed: Rebeca Peerz MD at 16:25 EST ,
--- NOTE | 2022-11-29 16:24 | HP.PCM.HOS_ITS ---
HPI - General General Date of Admission: 11/29/22 Date of Service: 11/29/22 Chief Complaint: mechanical fall HPI Narrative MARICRUZ HERBERT, is a 82 F with a PMh as outlined who presents via the ED on 11/29/2022 with a complaint of mechanical fall. She was helping her move a sofa and she lost her footing and fell to her left side. She subsequently started having severe pain in hte left hip area and couldnt move. The EMS was called. She denied any dizziness, lightheadedness, palpitations, chest pain, cough or syncope. Review of systems was otherwise negative. Vitals wre BP of 151/77, TN of 70, RR of 16 and temp of 96.4F. She was saturating at 94% on room air. CBC was unremarkable, and BMP was also significant only for glucose of 125. Pelvic xray showed left femoral neck fracture with superior migration of distal femur. Chest xray showed no acute cardiopulmonary process. EKG showed no acute ST changes. SHe is being admitted to be managed for acute left femoral neck fracture due to mechanical fall. [facility] Medical History h/o back cancer H/O malignant neoplasm of brain Home Medications multivitamin with minerals 1 ea PO DAILY 01/14/19 [History Last Taken Unknown] coenzyme Q10 30 mg capsule (CoQ-10) 30 mg PO DAILY 11/29/22 [History Last Taken Unknown] paroxetine HCl 30 mg tablet 30 mg PO DAILY 11/29/22 [History Last Taken Unknown] Allergy/AdvReac Type Severity Reaction Status Date / Time No Known Allergies Allergy Verified 11/29/22 15:17 Surgical History History of tonsillectomy Social History household members: spouse number of children: 5 current occupational status: retired history of recent travel: No Smoking Status: Never smoker alcohol intake: never substance use type: does not use well-balanced diet: daily or most days caffeine: Yes what type of physical activity do you participate in: none seatbelt use: always do you feel safe at home: Yes additional social history: - [place] [employer] Constitutional Constitutional: Denies anorexia, chills, fatigue, fever(s), malaise or weakness Eyes Eyes: Denies change in vision ENT HEENT: Denies dysphagia, headache(s), nasal congestion or sore throat Cardiovascular Cardiovascular: Denies chest pain, dyspnea on exertion, edema, lightheadedness, orthopnea, palpitations, paroxysmal nocturnal dyspnea, rapid heart rate or syncope Respiratory/Chest Respiratory/Chest: Denies cough, dyspnea, productive cough, shortness of breath at rest, shortness of breath with exertion or wheezing Gastrointestinal Gastrointestinal: Denies abdominal pain, nausea or vomiting Genitourinary Genitourinary: Denies burning urination or dysuria Musculoskeletal Musculoskeletal: Reports joint pain; Denies arthralgias, back pain, joint stiffness, joint swelling or myalgias Neurologic Neurologic: Denies confusion, disequilibrium, dizziness, focal weakness, headache(s), seizures or syncope Psychiatric Psychiatric: Denies anxiety or depression Endocrine Endocrinology: Denies change in body appearance Hematologic/Lymphatic Hematologic/Lymphatic: Denies anemia Vital Signs Vital Signs Vital Signs: 11/29/22 15:05 11/29/22 15:17 Temperature 96.4 F L Temperature Source Temporal Pulse Rate 70 Respiratory Rate 16 Respiratory Effort Normal Blood Pressure 151/77 H Blood Pressure Mean 101 Pulse Ox 94 Oxygen Delivery Method Room Air Weight Weight: 138 lb 14.259 oz Body Mass Index (BMI) 23.1 Physical Exam Const alert, oriented x3 and no apparent distress General Appearance: cooperative HEENT normocephalic, head/scalp atraumatic, hearing grossly normal bilaterally and moist oral mucous membranes Mouth: oral and palatal mucosa normal Eyes PERRL, EOMs intact bilaterally and conjunctivae normal Neck no lymphadenopathy, supple and no JVD Resp normal respiratory effort, no retractions, no use of accessory muscles and clear to auscultation bilaterally Cardio regular rate, regular rhythm, S1 normal heart sound, S2 normal heart sound and no murmurs GI normal to inspection, nondistended, normoactive bowel sounds, soft to palpation, non-tender and non-distended Extremity Extremity Narrative: LLE shortened, externally rotated, severe left hip tenderness. Neuro oriented x3 and CN's II-XII intact bilaterally Sensorium / Orientation: awake and alert Speech: speech normal Psych affect normal Results Lab / Micro Data Result Diagrams: 11/29/22 15:15 11/29/22 15:15 Labs: Laboratory Results - last 24 hr 11/29/22 15:15: WBC 6.7, RBC 4.30, Hgb 13.5, Hct 42.2, MCV 98.1, MCH 31.4, MCHC 32.0, RDW Std Deviation 48.0 H, RDW Coeff of Saundra 13.3, Plt Count 185, MPV 10.7, Immature Gran % (Auto) 0.100, Neut % (Auto) 62.4, Lymph % (Auto) 28.3, [place] % (Auto) 7.3, Eos % (Auto) 1.5, Baso % (Auto) 0.4, Absolute Neuts (auto) 4.2, Absolute Lymphs (auto) 1.90, Nucleated RBC % 0 11/29/22 15:15: Sodium 142, Potassium 3.7, Chloride 104, Carbon Dioxide 29.0, Anion Gap 9, BUN 12, Creatinine 0.96, Estim Creat Clear Calc 40.66, Est GFR (MDRD) Af Amer 71, Est GFR (MDRD) Non-Af 59 L, BUN/Creatinine Ratio 12.4, Glucose 125 H, Calcium 9.1 Radiology Impression Pelvis X-Ray 11/29/22 15:16 IMPRESSION: Left femoral neck fracture. Electronically Signed: Rebeca Perez MD at 16:20 EST , Chest X-Ray 11/29/22 15:17 IMPRESSION: No acute cardiopulmonary process. Electronically Signed: Rebeca Perez MD at 16:19 EST , Assessment & Plan Assessment/Plan (1) Left displaced femoral neck fracture: (2) Fall: PLAN: Plan #Left femoral neck fracture due to mechanical fall * admit to med surg 3 * fell whilst helping her move a sofa, and landed on her left hip * CXR showed no acute cardiopulmonary process. * EKG showed no acute St changes * NSQIP risk calculator: she is at below average (4.6%) risk of serius compliaction, and 6.5% *below average) risk of any complication. * PO tylenol, PO oxycodone and IV morphine prn for pain * hydrate gently with iVF * consult orthopedic surgery; ED spoke to Dr Yates who plans to operate tomorrow * fall precautions * patient risk stratified to go for surgery with low to moderate risk * #Elevated blood pressure * not a known hypertensive. BP is elevated, in the 150s. * may be due to pain. Will monitor. IV hydralazine prn * start oral BP meds if BP remains elevated * #History of lymphoma * in remission. Stable. * DVT prophylaxis: lovenox Code status: full code * Patient counseled extensively about different types of CODE STATUS including full code, DNR CCA and DNR CCA. Patient elects to be full code. * Total [id number] time 17 minutes. Charges/Coding Visit Charges Inpatient E&M: 89193 Init Hosp L3 Procedures Hospitalists Procedures: 86506 Advncd Care Plan 30 Min
[2022-11-29] MEDS: Morphine 2 MG/ML Syringe IV ×2 (16:50→18:23)
[2022-11-29 16:57] VITALS: BP 144/67; PULSE 74; RESP 17; TEMP 36.4; O2SAT 100
[2022-11-29 18:46] VITALS: BMI 23.7
[2022-11-29 19:05] VITALS: BP 165/75; PULSE 75; RESP 18; TEMP 36.9; O2SAT 96
[2022-11-29 19:44] VITALS: PULSE 75; O2SAT 98
[2022-11-29] MEDS: oxyCODONE 5 MG Tablet PO (20:00)
[2022-11-29] MEDS: 0.9% Normal Saline 1,000 ML 125 ML IV (20:00)
[2022-11-29 20:03] VITALS: BP 149/87; PULSE 79; RESP 16; TEMP 37.1; O2SAT 100
[2022-11-29] MEDS: Acetaminophen 325 MG Tablet 650 MG PO (22:14)
[2022-11-30] VITALS (17 sets, daily range): BP systolic 80–146; BP diastolic 57–91; PULSE 78–97; RESP 14–16; TEMP 36.4–37.1; O2SAT 81–100; BMI 24.2
[2022-11-30] MEDS: 0.9% Saline Lock 10 ML Syringe IV (01:53)
[2022-11-30] MEDS: Morphine 2 MG/ML Syringe IV (01:53)
--- NOTE | 2022-11-30 02:32 | PCM.HOSP.N ---
Hospitalist Note Patient with notable hypoxia following morphine, will hold and attempt usage of oral agents.
[2022-11-30] MEDS: 0.9% Normal Saline 1,000 ML 125 ML IV ×2 (04:09→18:46)
--- NOTE | 2022-11-30 04:21 | NURSING ---
Pt c/o of needing to void. Attemting to get out of bed. Very restless. No urine in purewic. Pt encouraged to void, HOB elevated. Pt voided only 100cc. Bladder scanned pt for >700. Dr Acevedo notified.
[2022-11-30 05:03] LABS: Absolute Lymphocyte Count 1.43 X10^3/uL (0.83-4.51); Absolute Neutrophil Count 9.9 X10^3/uL (2.0-7.7); Basophil# 0.04 X10^3/uL; Basophil% 0.3 % (0-1); Eosinophil# 0.04 X10^3/uL; Eosinophils% 0.3 % (0-5); Hematocrit 41.8 % (37-47); Hemoglobin 13.6 g/dL (12.0-15.0); Lymphocyte # 1.43 X10^3/ul (0.83-4.51); Lymphocyte % 11.7 % (19-41); Mean Corp Hgb Conc 32.5 g/dL (32-36); Mean Corpuscular Hgb 32.1 pg (27.0-32.0); Mean Corpuscular Volume 98.6 fL (81-99); Monocyte# 0.72 X10^3/uL; Monocyte% 5.9 % (0-10); NRBC Flagged by Analyzer 0 % (0-5); Neutrophil # 9.89 X10^3/uL (2.7-7.7); Neutrophil % 81.3 % (47-70); Platelet Count 168 K/mm3 (150-450); RBC Distribution Width CV 13.4 % (11.6-14.6); RBC Distribution Width SD 48.6 fl (35.1-43.9); Red Blood Count 4.24 M/mm3 (4.2-5.4); White Blood Count 12.2 K/mm3 (4.4-11.0)
[2022-11-30 05:27] LABS: Anion Gap 7 (5-15); BUN 9 mg/dL (7-18); BUN/Creat Ratio 10.3 RATIO (10-20); Calcium,Total 8.3 mg/dL (8.5-10.1); Chloride 103 mmol/L (98-107); Creatinine, Serum 0.87 mg/dL (0.55-1.02); EST Glomerular Filtration Rate 66 mL/min (>60); Est Glom Filt Rate - Afr Amer 80 mL/min (>60); Estimated Creatinine Clearance 43.05 ml/min; Glucose 124 mg/dL (74-106); Sodium Level 138 mmol/L (136-145)
--- NOTE | 2022-11-30 06:50 | CON.PCM_ITS ---
Assessment & Plan Assessment/Plan (1) Left displaced femoral neck fracture: PLAN: Displaced left subcapital capital femoral neck fracture. Natural history of the disease process and treatment options were discussed with the patient and her family. Patient's dementia is significant her and children were at the bedside for the entire discussion and the POA made final medical decisions. Patient is active and continues to live independently despite current dementia. Treatment options were discussed including operative and nonoperative interventions. Nonoperative interventions were not recommended based on patient's overall health and concerns for associated mortality and morbidity. Further treatments included surgical fixation as well as partial and total replacement. Partial hip replacement was recommended. Patient has no significant history of left hip pain in her past and x-rays show well-maintained joint spaces signifying a healthy level of acetabular cartilage. Risk and benefits of the procedure were discussed with the patient and her family including but limited blood loss, DVTs, PEs, neurovascular damage, fractures, dislocations, leg length discrepancies and the general risk of anesthesia include loss of life additionally with patient's anesthesia we discussed acute and chronic mental status changes postsurgical intervention/anesthesia. Family and power of patent attorney demonstrated understanding and did wish to proceed. At this time patient is n.p.o. antibiotics ordered on-call to the operating room we will plan to proceed with surgery this morning. (2) Dementia: PLAN: Postanesthesia effects were discussed the family and how this may also affect her ability to follow postoperative instructions was discussed and is understood by all parties. Management per primary team. HPI Consult Data Date of Consult: 11/30/22 HPI Narrative Reason for Consultation: Left hip pain HPI Narrative: MARICRUZ HERBERT, is a 82 F who presents today with left hip pain. Patient is unable to bear weight. Patient notes that yesterday she was in good health when she was helping her push a sofa. She lost her footing and fell onto her left side. After this she had tinnitus and pain and was unable to bear weight. She required transfer to the emergency department and was found to have a left femoral neck fracture. Currently she reports pain with motion better with immobilization. Pain is in her left hip and thigh. Patient previously lived at home with her and was a community ambulator.No previous history of hip or groin pain. She is otherwise in good health. She is had some hypertension on admission to the hospital but not chronically treated for hypertension. She denies any associated numbness and tingling. [facility] Medical History Cancer Dementia h/o back cancer H/O malignant neoplasm of brain Osteoporosis Home Medications multivitamin with minerals 1 ea PO DAILY Check with primary doctor 01/14/19 [History Last Taken Unknown] alprazolam 0.5 mg tablet 0.25 mg PO QHS hallucinations 11/29/22 [History Last Taken Unknown] coenzyme Q10 30 mg capsule (CoQ-10) 30 mg PO DAILY 11/29/22 [History Last Taken Unknown] paroxetine HCl 30 mg tablet 30 mg PO DAILY 11/29/22 [History Last Taken Unknown] Allergy/AdvReac Type Severity Reaction Status Date / Time No Known Allergies Allergy Verified 11/29/22 15:17 Family History no significant family his no significant family history Surgical History History of tonsillectomy Social History household members: spouse number of children: 5 current occupational status: retired history of recent travel: No Smoking Status: Never smoker alcohol intake: never substance use type: does not use well-balanced diet: daily or most days caffeine: Yes what type of physical activity do you participate in: none seatbelt use: always do you feel safe at home: Yes additional social history: - Brown ROS Constitutional Constitutional: Reports systems reviewed and no addt'l complaints, except as documented Eyes Eyes: Reports systems reviewed and no addt'l complaints, except as documented ENT HEENT: Reports systems reviewed and no addt'l complaints, except as documented Cardiovascular Cardiovascular: Reports systems reviewed and no addt'l complaints, except as documented Respiratory/Chest Respiratory/Chest: Reports systems reviewed and no addt'l complaints, except as documented Gastrointestinal Gastrointestinal: Reports systems reviewed and no addt'l complaints, except as documented Genitourinary Genitourinary: Reports systems reviewed and no addt'l complaints, except as documented Musculoskeletal Musculoskeletal: Reports systems reviewed and no addt'l complaints, except as documented Integumentary Integumentary: Reports systems reviewed and no addt'l complaints, except as d ocumented Neurologic Neurologic: Reports systems reviewed and no addt'l complaints, except as documented Psychiatric Psychiatric: Reports systems reviewed and no addt'l complaints, except as documented Physical Exam Const alert, oriented x3 and no apparent distress General Appearance: cooperative HEENT normocephalic Eyes PERRL Neck No nuchal rigidity Chest inspection of chest normal Resp normal respiratory effort Cardio Cardio Narrative: Regular pulse rate GI non-distended Extremity Extremity Narrative: Left lower extremity: Skin clean, dry, and intact. Limb is shortened and externally rotated Motor is intact dorsiflexion, EHL and plantar flexion. Sensation is intact to light touch saphenous, henrry,l superficial peroneal, deep peroneal and tibial distributions. Calves are soft and supple. Skin no wounds Neuro oriented x3 Psych mental status grossly normal Medical Records Data Attestation: I reviewed the patient's medical records Lab / Micro Data Result Diagrams: 11/30/22 04:25 11/30/22 04:25 Labs: Laboratory Results - last 24 hr 11/29/22 15:15: WBC 6.7, RBC 4.30, Hgb 13.5, Hct 42.2, MCV 98.1, MCH 31.4, MCHC 32.0, RDW Std Deviation 48.0 H, RDW Coeff of Saundra 13.3, Plt Count 185, MPV 10.7, Immature Gran % (Auto) 0.100, Neut % (Auto) 62.4, Lymph % (Auto) 28.3, [place] % (Auto) 7.3, Eos % (Auto) 1.5, Baso % (Auto) 0.4, Absolute Neuts (auto) 4.2, Absolute Lymphs (auto) 1.90, Nucleated RBC % 0 11/29/22 15:15: Sodium 142, Potassium 3.7, Chloride 104, Carbon Dioxide 29.0, Anion Gap 9, BUN 12, Creatinine 0.96, Estim Creat Clear Calc 40.66, Est GFR (MDRD) Af Amer 71, Est GFR (MDRD) Non-Af 59 L, BUN/Creatinine Ratio 12.4, Glucose 125 H, Calcium 9.1 11/29/22 15:15: Blood Type O POSITIVE, Antibody Screen NEGATIVE 11/30/22 04:25: WBC 12.2 H, RBC 4.24, Hgb 13.6, Hct 41.8, MCV 98.6, MCH 32.1 H, MCHC 32.5, RDW Std Deviation 48.6 H, RDW Coeff of Saundra 13.4, Plt Count 168, MPV 11.0, Immature Gran % (Auto) 0.500, Neut % (Auto) 81.3 H, Lymph % (Auto) 11.7 L, [place] % (Auto) 5.9, Eos % (Auto) 0.3, Baso % (Auto) 0.3, Absolute Neuts (auto) 9.9 H, Absolute Lymphs (auto) 1.43, Nucleated RBC % 0 11/30/22 04:25: Sodium 138, Potassium 4.0, Chloride 103, Carbon Dioxide 28.0, Anion Gap 7, BUN 9, Creatinine 0.87, Estim Creat Clear Calc 43.05, Est GFR (MDRD) Af Amer 80, Est GFR (MDRD) Non-Af 66, BUN/Creatinine Ratio 10.3, Glucose 124 H, Calcium 8.3 L Rhythm Strip Rhythm Strip: Sinus Rhythm Rate: 70 Ectopy: PVC(s) Radiology Impression Pelvis X-Ray 11/29/22 15:16 IMPRESSION: Left femoral neck fracture. Electronically Signed: Rebeca Perez MD at 16:20 EST Reading Location ID and State: [facility] / [place] Tel , Service support , Chest X-Ray 11/29/22 15:17 IMPRESSION: No acute cardiopulmonary process. Electronically Signed: Rebeca Perez MD at 16:19 EST Reading Location ID and State: [facility] / [place] Tel , Service support , Femur X-Ray 11/29/22 15:55 IMPRESSION: Femoral neck fracture. Electronically Signed: Rebeca Perez MD at 16:25 EST Reading Location ID and State: [facility] / [place] Tel , Service support ,
--- NOTE | 2022-11-30 07:20 | FEM_PTH ---
PATIENT: MARICRUZ HERBERT LOC: MS3 U#:[id number] AGE/SX: 82/F ROOM: MS311 RE11/29/[address]: Dr. Trupti Sanchez MD : 1940 BED: 1 DIS: 12/03/2022 SPEC #: [id number] RECD: 12/01/22 07:17 STATUS: ROB REGio #: [id number] LISETTE: 11/30/22 07:[address]: Bjorn Heller DEPT: SURGICAL PATHOLOGY RECD BY: Fozia Franklin ENTERED: 12/01/22 08:45 SP TYPE: FEM HEAD OTHR DR: MD Dr. Josue Fung MD Dr. Nana Yaa Koram, MD Dr. Paige Pierce, MD Dr. Steven Widmer, MD Tissues: Femoral region, NOS Procedures: Decalcification bone/plaque Surgery Specimen Level IV Comments: @ Ordering doctor for DEC edited from to DR.SWIDME Luz Elena LUDWIG at 12/01/22 1017 @ Ordering doctor for SUV edited from to @ by OZIEL at 12/01/22 1017 @ Submitting doctor edited from to DR.SWIDME Luz Elena LUDWIG at 12/01/22 1017 HEADER OPERATION: Left hip hemiarthroplasty, anterior PRE-OP DIAGNOSIS: Left displaced femoral neck fracture TISSUE SUBMITTED: Left femoral head bone and tissue MICROSCOPIC DIAGNOSIS Left femoral head, bone and tissue, hemiarthroplasty: Femoral head with focal area of hemorrhage, clinically femoral neck fracture. Fragments of fibroadipose tissue and fibroconnective tissue. TIMOTEO:carmelita 12/04/2022 MICROSCOPIC DESCRIPTION Slides are reviewed. GROSS DESCRIPTION Received is one container labeled with the patient's name and designated left femoral head, bone and tissue. The specimen consists of a sampson femoral head measuring 5.2 x 5 x 4.5 cm. The articular surface is mostly unremarkable with cartilage erosion. The non-articular surface is hemorrhagic and irregular consistent with fracture site. Fragments of sampson soft tissue are present in the specimen container measuring in aggregate 6 x 5 x 2 cm. Also present are fragments of sampson bone resembling femoral neck measuring in aggregate 4.5 x 3 x 2.3 cm. Sports Manager sections are submitted in two cassettes as follows: 1 - soft tissue, 2 - bone after decalcification. / AM:carmelita 12/01/2022 TC:5 CPT: 47133, 06298
--- NOTE | 2022-11-30 07:48 | PN.HOSP_ITS ---
Subjective Subjective Patient is an 82-year-old lady who sustained an acute mechanical fall. Presented to the emergency department due to pain. Imaging studies demonstrated left femoral neck fracture with superior migration of the distal femur. Admitted to regular nursing floor with consultation placed to orthopedic surgery Was a patient of undergoing ORIF on the morning of 11/30/2022 however she was found to be hypoxic. She had been placed on Ventimask without much improvement. CT of the chest subsequently ordered for further eval Objective Data Objective Data Vital Signs: Vital Signs Temp Pulse Resp BP Pulse Ox O2 Del Method O2 Flow Rate 98.7 F 78 16 140/73 H 96 Venturi Mask 2 11/30/22 05:04 11/30/22 05:04 11/30/22 05:04 11/30/22 05:04 11/30/22 07:43 11/30/22 07:43 11/30/22 02:05 FiO2 50 11/30/22 07:43 Oxygen Flow Rate (L/min) 2 Oxygen Delivery Method Venturi Mask Weight: 64 kg Body Mass Index (BMI) 24.2 Intake & Output: Intake and Output for Last 24 Hours 11/28/22 11/29/22 11/30/22 23:59 23:59 23:59 Intake Total 300 / 300 1000 / 1000 Output Total 300 / 300 700 / 700 Balance 0 / 0 300 / 300 Lab / Micro Data Result Diagrams: 11/30/22 04:25 11/30/22 04:25 Labs: Laboratory Results - last 24 hr 11/29/22 15:15: WBC 6.7, RBC 4.30, Hgb 13.5, Hct 42.2, MCV 98.1, MCH 31.4, MCHC 32.0, RDW Std Deviation 48.0 H, RDW Coeff of Saundra 13.3, Plt Count 185, MPV 10.7, Immature Gran % (Auto) 0.100, Neut % (Auto) 62.4, Lymph % (Auto) 28.3, Gem % (Auto) 7.3, Eos % (Auto) 1.5, Baso % (Auto) 0.4, Absolute Neuts (auto) 4.2, Absolute Lymphs (auto) 1.90, Nucleated RBC % 0 11/29/22 15:15: Sodium 142, Potassium 3.7, Chloride 104, Carbon Dioxide 29.0, Anion Gap 9, BUN 12, Creatinine 0.96, Estim Creat Clear Calc 40.66, Est GFR (MDRD) Af Amer 71, Est GFR (MDRD) Non-Af 59 L, BUN/Creatinine Ratio 12.4, Glucose 125 H, Calcium 9.1 11/29/22 15:15: Blood Type O POSITIVE, Antibody Screen NEGATIVE 11/30/22 04:25: WBC 12.2 H, RBC 4.24, Hgb 13.6, Hct 41.8, MCV 98.6, MCH 32.1 H, MCHC 32.5, RDW Std Deviation 48.6 H, RDW Coeff of Saundra 13.4, Plt Count 168, MPV 11.0, Immature Gran % (Auto) 0.500, Neut % (Auto) 81.3 H, Lymph % (Auto) 11.7 L, Gem % (Auto) 5.9, Eos % (Auto) 0.3, Baso % (Auto) 0.3, Absolute Neuts (auto) 9.9 H, Absolute Lymphs (auto) 1.43, Nucleated RBC % 0 11/30/22 04:25: Sodium 138, Potassium 4.0, Chloride 103, Carbon Dioxide 28.0, Anion Gap 7, BUN 9, Creatinine 0.87, Estim Creat Clear Calc 43.05, Est GFR (MDRD) Af Amer 80, Est GFR (MDRD) Non-Af 66, BUN/Creatinine Ratio 10.3, Glucose 124 H, Calcium 8.3 L Radiography Diagnostic Testing: Radiology Impression Pelvis X-Ray 11/29/22 15:16 IMPRESSION: Left femoral neck fracture. Electronically Signed: Rebeca Perez MD at 16:20 EST Reading Location ID and State: [facility] / [place] Tel , Service support , Chest X-Ray 11/29/22 15:17 IMPRESSION: No acute cardiopulmonary process. Electronically Signed: Rebeca Perez MD at 16:19 EST Reading Location ID and State: [facility] / [place] Tel , Service support , Femur X-Ray 11/29/22 15:55 IMPRESSION: Femoral neck fracture. Electronically Signed: Rebeca Perez MD at 16:25 EST , Rhythm Strip Rhythm Strip: Sinus Rhythm Rate: 70 Ectopy: PVC(s) Physical Exam Narrative GENERAL: cooperative, on Ventimask HEENT: Atraumatic; normocephalic EYES; Anicteric, Normal Conjunctiva NECK; supple, normal thyroid, RESPIRATORY: Diminished to auscultation CARDIOVASCULAR: Regular S1 S2, GI: soft, normoactive bowel sounds, : No Renal angle tenderness; EXTREMITIES: No edema, no clubbing, MUSCULOSKELETAL: Left lower extremity shortened and externally rotated NEURO: Awake; no lateralizing signs. SKIN: No Rash PSYCH; Flat affect Assessment & Plan Assessment/Plan (1) Left displaced femoral neck fracture: (2) Fall: PLAN: Plan Patient is an 82-year-old lady who sustained an acute mechanical fall. Pres ented to the emergency department due to pain. Imaging studies demonstrated left femoral neck fracture with superior migration of the distal femur. Admitted to regular nursing floor with consultation placed to orthopedic surgery 1. Acute mechanical fall with subsequent left femoral neck fracture ? Patient has been admitted to regular nursing floor managed with immobilization pain management with consultation placed to orthopedic surgery. Plan was for patient of undergone ORIF on the morning of 11/30/2022, surgery had to be postponed in view of patient being found to be hypoxic. 2. Acute hypoxia ? Atelectasis versus pneumonia versus VTE. Patient placed on supplemental oxygen CT of the chest ordered for subsequent eval ? CT of the chest did not reveal any evidence of acute pulmonary embolism. Patient was found to have bibasilar platelike and dependent atelectasis. Case subsequently discussed with Dr. Heller with orthopedic surgery patient will proceed with her surgery. 3. Elevated blood pressure ? Thought to be reactive as a result of patient's pain 4. History of lymphoma ? Patient is seen remission 5. DVT prophylaxis ? Lovenox Time spent in the patient's overall evaluation,decision-making process, review of diagnostic data, adjustment of management, discussion with other providers, nursing nursing and ancillary staff involved in patient's care documentation, 55 Minutes Charges/Coding Visit Charges Inpatient E&M: 07610 Subs Hosp L3
--- NOTE | 2022-11-30 07:55 | CT_ITS ---
STUDY: CTA CHEST REASON FOR EXAM: Female, 82 years old. Increased in oxygen requirements. RADIATION DOSAGE (If Supplied By Facility): CTDIvol = ( 9.32 ) mGy, DLP = ( 329.49 ) mGycm TECHNIQUE: The examination was performed with the intravenous administration of IV 75mL Isovue-370. Post-processing of the angiographic images was performed, with multiplanar reformation and 3D reconstruction. Individualized dose optimization techniques were used for this CT. COMPARISON: None. FINDINGS: Normal enhancement of the main pulmonary artery and right and left pulmonary arteries. Normal enhancement of the bilateral peripheral pulmonary arteries. There is no demonstrated pulmonary embolism. Normal thoracic aorta and visualized great vessels. There is no demonstrated aortic dissection. Normal heart and pericardium. Shotty mediastinal lymph nodes. Normal hilar regions. Normal visualized trachea and bronchi. Moderate bibasilar platelike and dependent atelectasis. No concerning pulmonary nodule. No pleural effusion or pneumothorax. Normal chest wall structures. Multilevel compression fracture deformities throughout the thoracolumbar spine which appear chronic. Mild to moderate multilevel degenerative change of the spine.. Visualized portions of the upper abdomen demonstrate a hypoattenuated lesion in the anterior midpole of the left kidney measuring near water density. There is a small hiatal hernia. CT/CTA Chest W/WO Contrast IMPRESSION: 1. No evidence of acute pulmonary embolism. 2. Bibasilar platelike and dependent atelectasis. Electronically Signed: Robbie Moore MD at 9:12 EST ,
[2022-11-30] MEDS: oxyCODONE 5 MG Tablet PO (09:17)
[2022-11-30] MEDS: Cefazolin 2 GM in 0.9% Normal Saline 100 ML IV (10:26)
--- NOTE | 2022-11-30 10:30 | RAD_ITS ---
EXAM: XR LEFT HIP WITH PELVIS WHEN PERFORMED, 1 VIEW CLINICAL INDICATION: FX TECHNIQUE: Frontal view of the left hip with pelvis when performed. This report was created using [employer] report generation technology. COMPARISON: 11/29/2022. FINDINGS: BONES/JOINTS: Left metallic hip arthroplasty with soft tissue air following recent ORIF. No displaced fracture. No destructive or sclerotic lesions. Note that overlapping bowel shadows may however obscure fine detail. Sacroiliac joint is unremarkable. No widening of the pubic symphysis. SOFT TISSUES: Unremarkable. No soft tissue swelling or gas. TUBES, LINES AND DEVICES: Contrast inside the urinary bladder with indwelling Martínez catheter. RAD/Hip 1 view with Pelvis IMPRESSION: Normal postop left metallic hip arthroplasty following ORIF of left femoral neck fracture. Electronically Signed: Zachary Melton MD at 11:46 EST ,
--- NOTE | 2022-11-30 10:51 | NURSING ---
Patient continues to be off the floor in surgery.
--- NOTE | 2022-11-30 11:09 | RAD_ITS ---
EXAM: XR LEFT HIP WITH PELVIS WHEN PERFORMED, 2 OR 3 VIEWS CLINICAL INDICATION: Post Op -- AP both hips on single efraín/lateral of op hip PACU TECHNIQUE: Two or three views of the left hip with pelvis when performed. This report was created using [email or web address] report generation technology. COMPARISON: 11/29/2019. FINDINGS: BONES/JOINTS: Left metallic hip arthroplasty with soft tissue swelling and air in the left hip following recent ORIF of left femoral neck fracture. No destructive or sclerotic lesions. Note that overlapping bowel shadows may however obscure fine detail. Sacroiliac joint is unremarkable. No widening of the pubic symphysis. SOFT TISSUES: See above. TUBES, LINES AND DEVICES: Minimal contrast inside the nearly empty urinary bladder and indwelling Martínez catheter in place. RAD/Hip Min 2 Views (Portable) IMPRESSION: Normal postop left metallic hip arthroplasty. Electronically Signed: Zachary Melton MD at 12:12 EST ,
--- NOTE | 2022-11-30 11:10 | OP.PCM_ITS ---
Report of Operation Date of Procedure: 11/30/22 Pre-Operative Diagnosis: Left hip displaced FNF Post-Operative Diagnosis: Left hip displaced FNF Surgery/Procedure Performed:: Left direct anterior partial hip replacement Description of Surgical Findings:: Stable hip with equal leg lengths Surgeon: Bjorn Heller masseur/masseuse: Qamar Ybarra Type of Anesthesia: Spinal Anesthesiologist: Alli Newton Special Medications: 2 g Ancef, 1 g TXA at incision, 1 g TXA closure, 10 mg Decadron, joint cocktail (5 mg Duramorph, 30 mL of 0.5% Ropivicaine, 1000 units of epinephrine, 30 mg of Toradol) Specimen's removed: Bony cuts Estimated Blood Loss (mL): 200 Fluids Replaced: 500 ml NS Description of Procedure: Components used: 1. Insignia Flo femoral stem size 6 std 2. Flo CoCr unitrax femoral head 50mm, 0mm femoral head Procedure: On the date of procedure the patient's L hip was marked in the preoperative area. Patient was then taken back to the operating room where anesthesia assumed control of the C-spine and airway and administered anesthetic. Patient was transferred to the operating table and placed in the supine position. The hips were placed at the break of the bed and a sacral bump was placed. L The lower extremity was then prepped out in a sterile fashion using chlorhexidine while the surgeon scrubbed. The PA was vital in the positioning of the patient. Upon reentering the room the left lower extremity was draped in the standard orthopedic fashion and the incision was marked. A timeout was called and everyone agreed upon the side, the site, the procedure be performed, antibody given, and patient's identity. At this time incision was made through skin, subcutaneous tissue, and fat down to fascia. The fascia was then incised and the TFL was retracted laterally. A retractor was placed on the lateral border of the femoral neck. Attention was directed to the inferior portion of the approach and all crossing vessels were identified and appropriately coagulated. A retractor was then placed on the medial portion of the femoral neck. The anterior capsule was then cleared of all soft tissue and then H shaped capsulotomy was made. The retractors were then placed inside the capsule. The femoral neck was identified and a cleanup cut was made. At this time a power corkscrew was used to remove the femoral head. Attention was then turned toward the acetabulum where the soft tissues were appropriately retracted and the acetabulum debrided of any bone and soft tissue. Attention was then turned to the femur. Soft tissue releases on the medial and lateral femoral neck were appropriately done, the leg was externally rotated and lateralized. A Scott retractor was placed medially and proximally to the greater trochanter this allowed appropriate visualization and exposure of the femoral canal. Rongeour was then used to remove excess lateral bone. A canal finder and entry broach were used to open the proximal canal. Once we verified we were down the femoral canal we subsequently broached up to a size 6 femur. The appropriate neck was placed in the previously selected head was trialed with a 0 mm neck. Traction was pulled and the hip was reduced with internal rotation. Once it was appropriately reduced and stability was checked. There was minimal shuck, equal leg lengths and appropriate stability with hyperextension and external rotation as well as with 90? flexion and internal rotation. Fluoroscopy was then also used to verify the position of the components and leg lengths using the contralateral side for comparison. The trial components were then dislocated the proximal femur was again exposed and the components were removed from the wound. The final components were verified and opened. The wound was copiously irrigated out with normal saline. The acetabulum was checked for any residual debris. The final components were placed and impacted. Traction and internal rotation were again used to reduce the hip. After adequate reduction the hip remained stable with appropriate leg lengths. The final components were once again checked with live fluoroscopy and were found to be satisfactory. The wound was then copiously irrigated with normal saline once more, and hemostasis was obtained. Closure was then done using #1 Vicryl runner to close the fascia. A 2-0 vicryl interuppted sutures were used to close the subcutaneous skin. A 3-0 Monocryl and Steri-Strips were used for final skin closure. A Silverlon dressing was placed. Patient was awakened by anesthesia and transferred to the [facility]. Patient was then transferred to the PACU for recovery. During the course of the procedure the physician airborne missions systems (PE) played a vital role. Their intimate knowledge of my steps in the procedure aided in safe and expedient completion of the procedure. The PE played a vital rolls in positioning particularly in obtaining the appropriate positioning of the sacral bump. The PE was also vital in the retraction of soft tissues during the exposure and especially the femoral work as this is a vital part of the procedure to prevent complications and fractures. The PE was also vital and protecting soft tissues during times of bony cuts and reaming. He also played a vital role in closure with my direct supervision. The PE was also important during reduction and dislocation of the joint and trials intraoperatively. Postoperative plan: Patient will get 24 hours postop antibiotics. Patient will get in-house physical therapy and will be weight-bear as tolerated. Patient will follow up in office in 2 weeks for a wound check and x-rays. Aspirin 81 mg twice daily pt has normal mobility and based on recent fall is a fall risk. Complications No intraoperative complications Admit VTE Documentation VTE Present on Admission: No VTE Mechan Device Prophylaxis: SCD's and Thigh High STEPHANIE Hose VTE Pharm Prophylaxis ordered?: Yes
[2022-11-30] MEDS: Cefazolin 1 GM/50 ML BAG IV (18:07)
[2022-11-30] MEDS: Aspirin 81 MG TAB.CHEW PO (21:32)
[2022-11-30] MEDS: ALPRAZolam 0.25 MG Tablet PO (23:10)
[2022-12-01] VITALS (13 sets, daily range): BP systolic 94–129; BP diastolic 57–81; PULSE 74–86; RESP 16–18; TEMP 36.6–37.2; O2SAT 74–100
[2022-12-01] MEDS: 0.9% Normal Saline 1,000 ML 125 ML IV ×2 (03:13→04:51)
[2022-12-01] MEDS: Cefazolin 1 GM/50 ML BAG IV (04:53)
--- NOTE | 2022-12-01 07:41 | PCM.PN.HOSP ---
Subjective Subjective f/u L hip fx, feels pain is fairly well controlled. Not eating and drinking particularly well but her and her family all report she does not eat well at home and does not drink much water. Martínez still in place at time of evaluation. Objective Data Objective Data Vital Signs: Vital Signs Temp Pulse Resp BP Pulse Ox O2 Del Method O2 Flow Rate 98.9 F 80 16 106/69 94 Nasal Cannula 3 12/01/22 03:00 12/01/22 03:00 12/01/22 03:00 12/01/22 03:00 12/01/22 07:11 12/01/22 07:11 12/01/22 07:11 FiO2 50 11/30/22 07:43 Oxygen Flow Rate (L/min) 3 Oxygen Delivery Method Nasal Cannula Weight: 64 kg Body Mass Index (BMI) 24.2 Intake & Output: Intake and Output for Last 24 Hours 11/29/22 11/30/22 12/01/22 23:59 23:59 23:59 Intake Total 300 / 300 3330 / 3330 2258.34 / 2258.34 Output Total 300 / 300 1350 / 1350 Balance 0 / 0 1979 / 1979 2258.34 / 2258.34 Lab / Micro Data Result Diagrams: 11/30/22 04:25 11/30/22 04:25 Radiography Diagnostic Testing: Radiology Impression Chest CTA 11/30/22 07:55 IMPRESSION: 1. No evidence of acute pulmonary embolism. 2. Bibasilar platelike and dependent atelectasis. Electronically Signed: Robbie Moore MD at 9:12 EST , Hip/Pelvis X-Ray 11/30/22 10:30 IMPRESSION: Normal postop left metallic hip arthroplasty following ORIF of left femoral neck fracture. Electronically Signed: Zachary Melton MD at 11:46 EST , Hip X-Ray 11/30/22 11:09 IMPRESSION: Normal postop left metallic hip arthroplasty. Electronically Signed: Zachary Melton MD at 12:12 EST , Rhythm Strip Rhythm Strip: Sinus Rhythm Rate: 70 Ectopy: PVC(s) Physical Exam Const alert and no apparent distress HEENT normocephalic and head/scalp atraumatic Eyes Eyes Narrative: EOM grossly intact, anicteric Neck supple Resp normal respiratory effort and clear to auscultation bilaterally Cardio regular rate and regular rhythm GI soft to palpation, non-tender and non-distended Extremity Extremity Narrative: Sitting up in chair Neuro Neuro Narrative: No overt focal deficits appreciated Psych Psych Narrative: Cooperative Assessment & Plan Assessment/Plan (1) Left displaced femoral neck fracture: (2) Fall: PLAN: Plan Patient is an 82-year-old F who sustained an acute mechanical fall.? Presented to the emergency department due to pain.? Imaging studies demonstrated left femoral neck fracture with superior migration of the distal femur.? Admitted to regular nursing floor with consultation placed to orthopedic surgery #L hip displaced FNF 12/04 mechanical fall Left direct anterior partial hip replacement performed 11/[address] Heller 24-hour postop antibiotics were given PT/OT Will need follow-up in office in 2 weeks with wound check and x-rays, can shower 12/04/2022 Aspirin 81 mg twice daily x30 days Patient expressing desire to go home, physical therapy reported could be TCU/SNF candidate. Will DC fluids after another 500 cc and d/c Martínez We will schedule Tylenol as per recommendations and can consider changing oxycodone to tramadol tomorrow pending progress If doing well tomorrow can revisit home with home health versus facility and possible DC home tomorrow if stable and still desiring home with home health and family #DVT ppx: on lovenox Time spent in the patient's overall evaluation,decision-making process, review of diagnostic data, adjustment of management, discussion with other providers, nursing nursing and ancillary staff involved in patient's care documentation, 30 minutes Charges/Coding Visit Charges Inpatient E&M: 35286 Subs Hosp L2
[2022-12-01] MEDS: Multivitamins,Ther W-Minerals Tablet 1 TABLET PO (08:43)
[2022-12-01] MEDS: oxyCODONE 5 MG Tablet PO (08:43)
[2022-12-01] MEDS: Acetaminophen 325 MG Tablet 650 MG PO (08:44)
[2022-12-01] MEDS: PARoxetine 10 MG Tablet 30 MG PO (08:44)
[2022-12-01] MEDS: Aspirin 81 MG TAB.CHEW PO ×2 (08:44→16:36)
--- NOTE | 2022-12-01 10:26 | PN.ORTHO_ITS ---
Subjective Subjective Patient sitting at bedside in a chair, with her family in the room with her. Patient reports her pain is very minimal and well managed. Patient denies any chest pain, shortness of breath, calf pain, and nausea vomiting. Patient feels she is doing very well and is ready for discharge home. Patient has no other c omplaints at this time. Objective Data Objective Data Vital Signs: Vital Signs Temp Pulse Resp BP Pulse Ox O2 Del Method O2 Flow Rate 97.9 F 86 18 128/69 H 94 Nasal Cannula 2 12/01/22 07:35 12/01/22 07:35 12/01/22 07:35 12/01/22 07:35 12/01/22 10:09 12/01/22 10:09 12/01/22 10:09 FiO2 50 11/30/22 07:43 Oxygen Flow Rate (L/min) 2 Oxygen Delivery Method Nasal Cannula Weight: 64 kg Body Mass Index (BMI) 24.2 Intake & Output: Intake and Output for Last 24 Hours 11/29/22 11/30/22 12/01/22 23:59 23:59 23:59 Intake Total 300 / 300 3330 / 3330 2258.34 / 2258.34 Output Total 300 / 300 1350 / 1350 Balance 0 / 0 1979 / 1979 2258.34 / 2258.34 Lab / Micro Data Result Diagrams: 11/30/22 04:25 11/30/22 04:25 Radiography Diagnostic Testing: Radiology Impression Hip/Pelvis X-Ray 11/30/22 10:30 IMPRESSION: Normal postop left metallic hip arthroplasty following ORIF of left femoral neck fracture. Electronically Signed: Zachary Melton MD at 11:46 EST Reading Location ID and State: [facility] / [place] , Service support , Hip X-Ray 11/30/22 11:09 IMPRESSION: Normal postop left metallic hip arthroplasty. Electronically Signed: Zachary Melton MD at 12:12 EST , Rhythm Strip Rhythm Strip: Sinus Rhythm Rate: 70 Ectopy: PVC(s) Physical Exam Narrative Upon exam I found patient sitting comfortably in a chair at bedside. Patient is in no respiratory distress and speaking in full sentences. Cranial nerves II through XII gross intact. Patient had excellent range of motion of the upper extremities with good muscle tone and strength. The dressing was clean dry intact on the left hip. Patient had good flexion-extension of the bilateral knees. No calf tenderness. Good plantar flexion dorsiflexion of the bilateral ankles and feet. Neurovascular is otherwise intact. Patient afebrile. Const alert, oriented x3 and well nourished General Appearance: cooperative HEENT normocephalic Eyes PERRL Resp normal respiratory effort Effort and Inspection: able to speak in complete sentences Extremity normal capillary refill Skin no rashes or lesions noted Neuro CN's II-XII intact bilaterally Motor Exam: strength 5/5 throughout and muscle tone normal throughout Psych mental status grossly normal and affect normal Assessment & Plan Assessment/Plan (1) History of hemiarthroplasty of left hip: PLAN: 1. Continue Tylenol extra strength 500 mg 2 p.o. every 8 hours scheduled. Patient presently using oxycodone, reassessment of pain tomorrow post therapy consider possible Ultram 50 mg 1-2 every 6 hours 2. Aspirin 81 mg 1 p.o. every 12 hours x30 days for postop DVT prophylaxis 3. Encourage incentive spirometry 4. Weight-bear as tolerated with walker 5. Continue outpatient physical therapy at discharge. 6. Follow with Dr. Heller in 2 weeks 7. Shower 12-04-22 8. Discharge home when cleared by medicine (2) Left displaced femoral neck fracture:
--- NOTE | 2022-12-01 11:29 | CASEMGMT ---
RN?CM?TRAFFIC OPERATOR?CM?to room to meet with patient for initial transition planning/care coordination?assessment.?RN?CM?introduced self and role at [facility].? Pt voices understanding and consents to?assessment?at this time.? Pt sitting up in chair in room in no distress at this time.? , dtr-Beatriz Pittman, and son-Kapil, @ bedside and pt agreeable to them being present during assessment. Pt but have dementia, but is A/O at this time and answers all questions appropriately. She did look over at her occasionally to confirm her answers were correct.? Care providers, pharmacy, and demographics verified/updated at this time. PCP: Dr Desir Specialists:none Preferred Pharmacy: [facility] Insurance: [employer] Prescription Benefit:?Yes Living Will/HPOA:?Has both LW and HCPOA, who is her , Brown LNOK: , Brown. 4 living children. Living Arrangements: Lives w/her in one-story home w/2 steps to enter. Was very indep prior to fall/hospitalization and used no AD to ambulate. able to assist when pt returns home. Dtr, Beatriz Pittman, lives next-door and able to assist as needed. Transportation:?Pt and both drive. DME: Pt used no AD to ambulate prior to fall, but does have the following DME available @ home: shower chair, BSC, cane, hospital bed, lift chair, walker, W/C. HHC/SNF: No hx of either. Pt has done OP therapy @ [facility] in the past. Pt and family state prefer for pt to discharge home w/HHC, if able. PLAN:??TBD. SNF vs Home w/HHC. Akshat BSN?RN?CM
--- NOTE | 2022-12-01 11:54 | CASEMGMT ---
Social Work? SW in to meet with pt following update from and therapy team that pt will need placement at nursing facility. SW introduced self and role at the hospital. Pt agreeable to discussing discharge planning. A list of SNF providers including quality and resource use data consistent with the patient?s preferred geographic region, medical needs, and insurance network were provided from the [facility] Guide. Pt reviewed list but asked if an answer can be given later this day as pt family are considering taking pt home. SW discussed that therapy is recommending a SNF placement for short term therapy. Family wants to discuss and go over factors. PLAN: SNF? [facility]?
[2022-12-01] MEDS: 0.9% Saline Lock 10 ML Syringe IV (13:36)
--- NOTE | 2022-12-01 13:37 | CASEMGMT ---
RN CM in to pt room, pt lying in bed with eyes closed and oxygen on in no distress. Pt did not open eyes when RN CM in room. Pt at bedside. Provided pt with a list of C providers including quality and resource use data and consistent with the patient?s preferred geographic region, medical needs, and insurance network were provided from the [facility] Guide as requested by family. Pt states they need time to think about these options. He is aware RN CM or ALAINA will check back.
[2022-12-01] MEDS: 0.9% Normal Saline 1,000 ML 100 ML IV (14:47)
[2022-12-01] MEDS: Acetaminophen 500 MG Tablet 1000 MG PO (14:47)
[2022-12-01] MEDS: RisperiDONE 0.5 MG Tablet PO (14:47)
--- NOTE | 2022-12-01 15:21 | CASEMGMT ---
Social Work SW in to meet with pt . SW requested meet with SW in family waiting room. agreeable. Once in waiting room SW inquired about emotional health and reviewed how taking care of a loved one with Dementia can sometimes be overwhelming. Pt stated doing well. Listened to SW education about self care and concern for pt going home and causing further harm, as pt dementia means pt not always able to follow directions/commands. Pt acknowledge this and stated it can be hard to manage pt at home. SW explained pt likely to be medically ready for discharge tomorrow and that if family plans for pt to go to SNF that a referral needs to be sent soon to begin this phase of the d/c plan. Pt stated wants to check with son this evening for final decision but feels [facility] will be the choice. PLAN: SNF (likely [facility]) [facility]
--- NOTE | 2022-12-01 15:33 | CASEMGMT ---
Social Work? ? SW in to pt room to verify advance directives. Pt confirmed pt has AD and named?himself () as agent. SW made aware documents are not on file and if would like to bring these documents in the documents can be dropped off at the Medical Records department or with special investigation unit investigator to be added to pt file. Pt voiced understanding.?? ? [facility]?
[2022-12-01] MEDS: hydrOXYzine 10 MG Tablet PO ×2 (16:36→18:37)
[2022-12-01] MEDS: MELATONIN 10 MG TABLET PO (18:37)
--- NOTE | 2022-12-01 22:51 | NURSING ---
went in pts room to make daughter aware ordered Seroquel for pt. pt asleep at this time. family requested to hold off on meds for now. will keep monitoring pt.
[2022-12-02] VITALS (8 sets, daily range): BP systolic 105–142; BP diastolic 56–89; PULSE 74–93; RESP 16–18; TEMP 36.3–37.2; O2SAT 94–97
[2022-12-02] MEDS: Acetaminophen 500 MG Tablet 1000 MG PO ×3 (00:15→21:02)
--- NOTE | 2022-12-02 08:53 | PN.HOSP_ITS ---
Subjective Subjective Was confused and agitated yesterday and did not sleep well overnight, more calm this a.m. on evaluation but remains confused. Seen with family at bedside. Patient did not have any specific complaints Objective Data Objective Data Vital Signs: Vital Signs Temp Pulse Resp BP Pulse Ox O2 Del Method O2 Flow Rate 98.4 F 86 18 142/89 H 97 Nasal Cannula 2 12/02/22 02:19 12/02/22 02:19 12/02/22 02:19 12/02/22 02:19 12/02/22 02:19 12/02/22 02:19 12/02/22 02:19 FiO2 50 11/30/22 07:43 Oxygen Flow Rate (L/min) 2 Oxygen Delivery Method Nasal Cannula Weight: 64 kg Body Mass Index (BMI) 24.2 Intake & Output: Intake and Output for Last 24 Hours 11/30/22 12/01/22 12/02/22 23:59 23:59 23:59 Intake Total 3330 / 3330 3254.17 / 3254.17 1000 / 1000 Output Total 1350 / 1350 190 / 190 500 / 500 Balance 1979 / 1979 3064.17 / 3064.17 500 / 500 Lab / Micro Data Result Diagrams: 11/30/22 04:25 11/30/22 04:25 Rhythm Strip Rhythm Strip: Sinus Rhythm Rate: 70 Ectopy: PVC(s) Physical Exam Narrative General: Alert, not oriented, no acute distress HEENT: Atraumatic, normocephalic Eyes: Anicteric, normal conjunctiva, extraocular movements grossly intact Neck: Supple Respiratory: Clear to auscultation bilaterally, normal respiratory effort Cardiovascular: Regular rate and rhythm GI: Soft, nontender, nondistended Extremities: No edema Musculoskeletal: Moving all extremities Neuro: No overt focal neurological deficits Skin: No rashes appreciated Psych: Cooperative Assessment & Plan Assessment/Plan (1) Left displaced femoral neck fracture: (2) Fall: PLAN: Plan Patient is an 82-year-old F who sustained an acute mechanical fall.? Presented to the emergency department due to pain.? Imaging studies demonstrated left femoral neck fracture with superior migration of the distal femur.? Admitted to regular nursing floor with consultation placed to orthopedic surgery #L hip displaced FNF 2/2 mechanical fall Left direct anterior partial hip replacement performed 11/[address] Heller 24-hour postop antibiotics were given PT/OT Will need follow-up in office in 2 weeks with wound check and x-rays, can shower 12/04/2022 Aspirin 81 mg twice daily x30 days Patient expressing desire to go home, physical therapy reported could be TCU/SNF candidate. Will DC fluids after another 500 cc and d/c Martínez We will schedule Tylenol as per recommendations and can consider changing ox ycodone to tramadol tomorrow pending progress If doing well tomorrow can revisit home with home health versus facility and possible DC home tomorrow if stable and still desiring home with home health and family 12/02: Physical therapy recommending placement, family agreeable. We will pursue placement. 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 Will resume Xanax as that been held last did not have may be contributing DC opioids as the combination may make things worse Family did confirm that she has been taking the Xanax for several weeks and it was helpful #DVT ppx: Aspirin 81 mg twice daily Time spent in the patient's overall evaluation,decision-making process, review of diagnostic data, adjustment of management, discussion with other providers, nursing nursing and ancillary staff involved in patient's care documentation, 30 minutes Charges/Coding Visit Charges Inpatient E&M: 00628 Subs Hosp L2
--- NOTE | 2022-12-02 09:45 | CASEMGMT ---
Addendum entered by Pearl Johnson 12/02/22 13:25: [facility] able to accept. Precert to be started today. Original Note: Social Work SW in to meet with pt and daughter. Pt and daughter asked many questions regarding SNFs and the policies in place. Pt daughter expressing concerns and presenting with anxiety regarding nursing homes controlling pt ability to leave. SW explained that what daughter heard that the custodial basically makes families sign their rights over and will not allow families to take pt's home is not factual, especially in the short term rehab facility. SW offered education on how the process works and that insurance would be paying for pt stay, which would ultimately end payment once pt makes significant progress. SW continued to work to ease daughters concerns through discussion of facts. After some time family was agreeable to SW sending referral to [facility]. SW sent referral to [facility]. Will await determination. PLAN: [facility], pending precert [facility]
[2022-12-02] MEDS: Aspirin 81 MG TAB.CHEW PO ×2 (10:29→16:35)
[2022-12-02] MEDS: PARoxetine 10 MG Tablet 30 MG PO (10:30)
[2022-12-02] MEDS: Multivitamins,Ther W-Minerals Tablet 1 TABLET PO (10:30)
[2022-12-02] MEDS: ALPRAZolam 0.25 MG Tablet PO (21:02)
[2022-12-02] MEDS: MELATONIN 10 MG TABLET PO (21:02)
[2022-12-03 03:00] VITALS: BP 151/90; PULSE 82; RESP 16; TEMP 36.6; O2SAT 95
[2022-12-03] MEDS: Acetaminophen 500 MG Tablet 1000 MG PO ×2 (05:43→15:02)
[2022-12-03 06:21] LABS: Absolute Lymphocyte Count 1.39 X10^3/uL (0.83-4.51); Basophil# 0.04 X10^3/uL; Basophil% 0.5 % (0-1); Eosinophil# 0.39 X10^3/uL; Eosinophils% 4.5 % (0-5); Hematocrit 33.4 % (37-47); Hemoglobin 10.7 g/dL (12.0-15.0); Lymphocyte # 1.39 X10^3/ul (0.83-4.51); Lymphocyte % 15.9 % (19-41); Mean Corpuscular Hgb 31.2 pg (27.0-32.0); Mean Corpuscular Volume 97.4 fL (81-99); Mean Platelet Vol. 11.6 fl (6.2-12.0); Monocyte# 0.83 X10^3/uL; Monocyte% 9.5 % (0-10); NRBC Flagged by Analyzer 0 % (0-5); Neutrophil # 6.03 X10^3/uL (2.7-7.7); Platelet Count 143 K/mm3 (150-450); RBC Distribution Width CV 13.7 % (11.6-14.6); RBC Distribution Width SD 48.8 fl (35.1-43.9); Red Blood Count 3.43 M/mm3 (4.2-5.4); White Blood Count 8.7 K/mm3 (4.4-11.0)
[2022-12-03 06:49] LABS: Anion Gap 8 (5-15); BUN 17 mg/dL (7-18); BUN/Creat Ratio 21.7 RATIO (10-20); Calcium,Total 8.5 mg/dL (8.5-10.1); Chloride 108 mmol/L (98-107); Creatinine, Serum 0.78 mg/dL (0.55-1.02); EST Glomerular Filtration Rate 74 mL/min (>60); Est Glom Filt Rate - Afr Amer 90 mL/min (>60); Estimated Creatinine Clearance 37.45 ml/min; Glucose 99 mg/dL (74-106); Potassium 3.8 mmol/L (3.5-5.1); Sodium Level 141 mmol/L (136-145)
--- NOTE | 2022-12-03 07:15 | PN.HOSP_ITS ---
Subjective Subjective Doing well today, pleasantly confused, slept well last night. No complaints of pain Objective Data Objective Data Vital Signs: Vital Signs Temp Pulse Resp BP Pulse Ox O2 Del Method O2 Flow Rate 98 F 82 16 151/90 H 95 Room Air 2 12/03/22 03:00 12/03/22 03:00 12/03/22 03:00 12/03/22 03:00 12/03/22 03:00 12/03/22 03:00 12/02/22 10:00 FiO2 50 11/30/22 07:43 Oxygen Flow Rate (L/min) 2 Oxygen Delivery Method Room Air Weight: 64 kg Body Mass Index (BMI) 24.2 Intake & Output: Intake and Output for Last 24 Hours 12/01/22 12/02/22 12/03/22 23:59 23:59 23:59 Intake Total 3254.17 / 3254.17 1350 / 1350 Output Total 190 / 190 500 / 500 Balance 3064.17 / 3064.17 850 / 850 Lab / Micro Data Result Diagrams: 12/03/22 06:00 12/03/22 06:00 Labs: Laboratory Results - last 24 hr 12/03/22 06:00: WBC 8.7, RBC 3.43 L, Hgb 10.7 L, Hct 33.4 L, MCV 97.4, MCH 31.2, MCHC 32.0, RDW Std Deviation 48.8 H, RDW Coeff of Saundra 13.7, Plt Count 143 L, MPV 11.6, Immature Gran % (Auto) 0.600, Neut % (Auto) 69.0, Lymph % (Auto) 15.9 L, [place] % (Auto) 9.5, Eos % (Auto) 4.5, Baso % (Auto) 0.5, Absolute Neuts (auto) 6.0, Absolute Lymphs (auto) 1.39, Nucleated RBC % 0 12/03/22 06:00: Sodium 141, Potassium 3.8, Chloride 108 H, Carbon Dioxide 25.0, Anion Gap 8, BUN 17, Creatinine 0.78, Estim Creat Clear Calc 37.45, Est GFR (MDRD) Af Amer 90, Est GFR (MDRD) Non-Af 74, BUN/Creatinine Ratio 21.7 H, Glucose 99, Calcium 8.5 Rhythm Strip Rhythm Strip: Sinus Rhythm Rate: 70 Ectopy: PVC(s) Physical Exam Narrative General: Alert, not oriented, no acute distress HEENT: Atraumatic, normocephalic Eyes: Anicteric, normal conjunctiva, extraocular movements grossly intact Neck: Supple Respiratory: Clear to auscultation bilaterally, normal respiratory effort Cardiovascular: Regular rate and rhythm GI: Soft, nontender, nondistended Extremities: No edema Musculoskeletal: Moving all extremities Neuro: No overt focal neurological deficits Skin: No rashes appreciated Psych: Cooperative Assessment & Plan Assessment/Plan (1) Left displaced femoral neck fracture: (2) Fall: PLAN: Plan Patient is an 82-year-old F who sustained an acute mechanical fall.? Presented to the emergency department due to pain.? Imaging studies demonstrated left femoral neck fracture with superior migration of the distal femur.? Admitted to regular nursing floor with consultation placed to orthopedic surgery #L hip displaced FNF 12/04 mechanical fall Left direct anterior partial hip replacement performed 11/[address] Heller 24-hour postop antibiotics were given PT/OT Will need follow-up in office in 2 weeks with wound check and x-rays, can shower 12/04/2022 Aspirin 81 mg twice daily x30 days Patient expressing desire to go home, physical therapy reported could be TCU/SNF candidate. Will DC fluids after another 500 cc and d/c Martínez We will schedule Tylenol as per recommendations and can consider changing oxycodone to tramadol tomorrow pending progress If doing well tomorrow can revisit home with home health versus facility and possible DC home tomorrow if stable and still desiring home with home health and family 12/02: Physical therapy recommending placement, family agreeable. We will pursue placement. 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 Will resume Xanax as that been held last did not have may be contributing DC opioids as the combination may make things worse Family did confirm that she has been taking the Xanax for several weeks and it was helpful 12/03: Received the Xanax last night, Did not require any as needed Risperdal, has done well on this #DVT ppx: Aspirin 81 mg twice daily Time spent in the patient's overall evaluation,decision-making process, review of diagnostic data, adjustment of management, discussion with other providers, nursing nursing and ancillary staff involved in patient's care documentation, 30 minutes
--- NOTE | 2022-12-03 09:50 | CASEMGMT ---
Addendum entered by Pearl Johnson 12/03/22 11:09: Pt called SW to room to discuss new plan. Pt stated family has decided to take pt home as they have seen great progress and no longer anticipate the need for rehab. Pt stated would be going to hardware store and getting safety bars for toilet and bed to keep pt safe once home. SW confirmed this is plan and pt stated I don't want her to go to some new place. She will be scare and confused. SW informed pt that [facility] would likely d/c pt today if pt no longer waiting for [facility] placement. Pt stated fine with this and will have it arranged for 2 family members to be with pt at all times for the next week or so. MD [facility] notified of families new plan for pt. MD [facility] plans to d/c pt later this day. SW canceled referral with [facility] via [facility]. [facility] Original Note: Social Work SW in to pt room to inform and pt daughter that pt has been accepted at [facility]. Both voiced understanding and will await news of precert. [facility]
[2022-12-03] MEDS: Multivitamins,Ther W-Minerals Tablet 1 TABLET PO (10:41)
[2022-12-03] MEDS: Aspirin 81 MG TAB.CHEW PO (10:42)
[2022-12-03] MEDS: PARoxetine 10 MG Tablet 30 MG PO (10:42)
[2022-12-03 10:45] VITALS: BP 128/67; PULSE 81; RESP 18; TEMP 36.3; O2SAT 99
--- NOTE | 2022-12-03 11:13 | CASEMGMT ---
Addendum entered by Valeria Lanza 12/03/22 11:51: Pt and family aware that [facility] will be in touch to visit tomorrow. Pt and family agreeable with this plan. Addendum entered by Valeria Lanza 12/03/22 11:47: Received tc back from Jeannette at [facility], they are able to see pt for SOC tomorrow. Updated hospitalist. Original Note: RHYS LINDSAY made aware that pt and family would like to return home with [facility]. RHYS LINDSAY in to pt room, pt sitting up in chair folding towels, and dtr at bedside. Pt has list of [facility] agencies. He chose 1. [facility] 2. [facility] 3. [facility]. TC to Jeannette at [facility], left message with referral. Will await returned call.
--- NOTE | 2022-12-03 14:00 | DCINST_ITS ---
Discharge Instructions Diet Discharge Diet: No restrictions Activity Discharge Activity: - (Weightbearing as tolerated with a walker) Follow Up Care Test Results: Test results from this visit will be discussed in further detail at your follow- up appointment, if applicable. Discharge Plan Admission Admit Date/Time: 11/29/22 16:37 Primary Reason for Your Visit: Fall with a broken left hip Attending Provider: Trupti Sanchez Primary Care Provider: Kayley Desir Consulting Providers: Bjorn Heller ; Yusra Masterson ; Josue Pandey Instructions Patient Instructions: ED Constipation (Adult), ED Fall Prevention Additional Instructions / Restrictions: DISCHARGE INSTRUCTIONS PLEASE READ *Please take this with you to your next doctors appointment* ?Would recommend to continue scheduled Tylenol 2 tabs of extra strength every 8 hours for 2 days and then switch to as needed and do not exceed recommended dose on package label ?You will need aspirin 81 mg twice daily for 30 days. You have received this for several days since her surgery and the remainder of the prescription will be sent to your pharmacy on file ? Weightbearing as tolerated with a walker ? You will need to continue physical therapy upon discharge ? You may shower tomorrow 12/04/2022 ? You will need to follow with Dr. Heller in 2 weeks in the office for wound check and x-rays. Please call his office upon discharge to schedule hospital follow-up appointment ? Additionally you have had difficulty with constipation, it is important that you eat a high-fiber diet with fresh fruits and vegetables, reduce dairy intake, meats, and processed foods and drink enough fluids each day. Make sure to drink plenty of water when you have more fiber as well. Additionally would recommend obtaining Metamucil powder [id number]. Take 1 rounded spoon 3 times daily before each meal. Would also take MiraLAX daily until you have a bowel movement and then only continue metamucil -Please call your primary care provider's office upon discharge to schedule a hospital follow up within 1 week. -For any concerning signs or symptoms please call 911 or proceed to the nearest emergency department Discharge Orders/Prescriptions Prescriptions: New aspirin 81 mg Tablet,Chewable 81 mg PO BIDCM 26 Days Qty: 54 0RF Continued multivitamin with minerals 1 EACH tablet 1 ea PO DAILY paroxetine HCl 30 mg tablet 30 mg PO DAILY coenzyme Q10 [CoQ-10] 30 mg Capsule 30 mg PO DAILY alprazolam 0.5 mg tablet 0.25 mg PO QHS Referrals / Follow Up: Kayley Desir MD [Primary Care Provider] - Within 1 Week Bjorn Heller MD [Med Staff - Active Staff] - Within 2 Weeks (You will need to follow with Dr. Heller in 2 weeks in the office for wound check and x-rays. Please call his office upon discharge to schedule hospital follow-up michelle ointment) Disposition Disposition (needs filled in before D/C Order can be placed): Home Health Service
[2022-12-03] MEDS: Senna/Docusate Sodium 1 Tablet 2 TABLET PO (14:51)
[2022-12-03] MEDS: Polyethylene Glycol 3350 17 GM PACKET PO (14:51)
--- NOTE | 2022-12-03 15:09 | DS.PCM_ITS ---
Providers Date of Admission: 11/29/22 Date of Discharge: 12/03/22 Primary Care Physician: Dr. Kayley Desir MD Consultations 11/29/22 18:46 Consult: Orthopedics Routine Consulting Provider: Bjorn Heller Reason for Consult: left hip fracture EMERGENT Consult: No MD Notified: Yes Date Notified: 11/29/22 Time Notified: 16:39 Method of Notification: Text Reason For Visit: LEFT HIP FRACTURE DUE TO MECHANICAL FALL Diagnosis Discharge Diagnosis (1) Left displaced femoral neck fracture: Status: Acute Code(s): S72.002A - Fracture of unspecified part of neck of left femur, initial encounter for closed fracture (2) Fall: Status: Acute Code(s): W19.XXXA - Unspecified fall, initial encounter Plan #L hip displaced FNF 12/04 mechanical fall #Hyperactive delirium on dementia Medications at Discharge Home Medications multivitamin with minerals 1 ea PO DAILY Check with primary doctor 01/14/19 alprazolam 0.5 mg tablet 0.25 mg PO QHS hallucinations 11/29/22 coenzyme Q10 30 mg capsule (CoQ-10) 30 mg PO DAILY 11/29/22 paroxetine HCl 30 mg tablet 30 mg PO DAILY 11/29/22 aspirin 81 mg chewable tablet 81 mg PO BIDCM 26 days #54 tabs 12/03/22 Hospital Course Operations - (Hemiarthroplasty of left hip) Summary of Care Provided Minutes Spent on Discharge: 35 Hospital Course: Patient is an 82-year-old F who sustained an acute mechanical fall.? Presented to the emergency department 11/29 due to pain.? Imaging studies demonstrated left femoral neck fracture with superior migration of the distal femur.? Admitted to regular nursing floor with consultation placed to orthopedic surgery. She was taken to the OR by Dr. Heller on 11/30 for a left direct anterior partial hip replacement. She was given 24-hour postop antibiotics, started on aspirin 81 mg twice a day for 30 days, instructions to follow-up in 2 weeks with wound check and x-rays and can shower 12/04/2022. She did well from an orthopedic perspective and family wanted to take her home with home health when she was cleared to do so by Ortho. Did have a stay complicated by hyperactive delirium on top of her underlying dementia. Initially felt to be due to the combination of opioids and the Xanax that she was on nightly. Xanax was held and patient continued to worsen. Attempted Risperdal, hydroxyzine, melatonin. Discussed with family ultimately DC'd opioids and gave patient Xanax nightly and while she remained confused she was much more calm and able to sleep and more directable. On day of discharge she was denying any pain and had no complaints. Had been having problems with constipation and discussed with family, ultimately this can be treated at home. Given MiraLAX and senna docusate prior to discharge with further instructions once patient is home. Instructions as followed: ?Would recommend to continue scheduled Tylenol 2 tabs of extra strength every 8 hours for 2 days and then switch to as needed and do not exceed recommended dose on package label ?You will need aspirin 81 mg twice daily for 30 days.? You have received this for several days since her surgery and the remainder of the prescription will be sent to your pharmacy on file ? Weightbearing as tolerated with a walker ? You will need to continue physical therapy upon discharge ? You may shower tomorrow 12/04/2022 ? You will need to follow with Dr. Heller in 2 weeks in the office for wound check and x-rays.? Please call his office upon discharge to schedule hospital follow-up appointment ? Additionally you have had difficulty with constipation, it is important that you eat a high-fiber diet with fresh fruits and vegetables, reduce dairy intake, meats, and processed foods and drink enough fluids each day.? Make sure to drink plenty of water when you have more fiber as well.? Additionally would recommend obtaining Metamucil powder [id number].? Take 1 rounded spoon 3 times daily before each meal.? Would also take MiraLAX daily until you have a bowel movement and then only continue metamucil -Please call your primary care provider's office upon discharge to schedule a hospital follow up within 1 week. -For any concerning signs or symptoms please call 911 or proceed to the nearest emergency department Physical Exam Narrative General: Alert, not oriented, no acute distress HEENT: Atraumatic, normocephalic Eyes: Anicteric, normal conjunctiva, extraocular movements grossly intact Neck: Supple Respiratory: Clear to auscultation bilaterally, normal respiratory effort Cardiovascular: Regular rate and rhythm GI: Soft, nontender, nondistended Extremities: No edema Musculoskeletal: Moving all extremities Neuro: No overt focal neurological deficits Skin: No rashes appreciated Psych: Cooperative Weight / BMI Weight Weight: 64 kg Body Mass Index (BMI) 24.2 ABG / Lab / Microbiology Data Result Diagrams: 12/03/22 06:00 12/03/22 06:00 Laboratory: Laboratory Results - last 24 hr 12/03/22 06:00: WBC 8.7, RBC 3.43 L, Hgb 10.7 L, Hct 33.4 L, MCV 97.4, MCH 31.2, MCHC 32.0, RDW Std Deviation 48.8 H, RDW Coeff of Saundra 13.7, Plt Count 143 L, MPV 11.6, Immature Gran % (Auto) 0.600, Neut % (Auto) 69.0, Lymph % (Auto) 15.9 L, Gonzales % (Auto) 9.5, Eos % (Auto) 4.5, Baso % (Auto) 0.5, Absolute Neuts (auto) 6.0, Absolute Lymphs (auto) 1.39, Nucleated RBC % 0 12/03/22 06:00: Sodium 141, Potassium 3.8, Chloride 108 H, Carbon Dioxide 25.0, Anion Gap 8, BUN 17, Creatinine 0.78, Estim Creat Clear Calc 37.45, Est GFR (MDRD) Af Amer 90, Est GFR (MDRD) Non-Af 74, BUN/Creatinine Ratio 21.7 H, Glucose 99, Calcium 8.5 D/C Instructions Discharge Diet: No restrictions Meaningful Use Info Meaningful Use Diagnoses (Choose all that apply): None applicable Discharge Plan Admission Admit Date/Time: 11/29/22 16:37 Primary Reason for Your Visit: Fall with a broken left hip Attending Provider: Trupti Sanchez Primary Care Provider: Kayley Desir Consulting Providers: Bjorn Heller ; Yusra Masterson ; Josue Pandey Instructions Patient Instructions: ED Constipation (Adult), ED Fall Prevention Additional Instructions / Restrictions: DISCHARGE INSTRUCTIONS PLEASE READ *Please take this with you to your next doctors appointment* ?Would recommend to continue scheduled Tylenol 2 tabs of extra strength every 8 hours for 2 days and then switch to as needed and do not exceed recommended dose on package label ?You will need aspirin 81 mg twice daily for 30 days. You have received this f or several days since her surgery and the remainder of the prescription will be sent to your pharmacy on file ? Weightbearing as tolerated with a walker ? You will need to continue physical therapy upon discharge ? You may shower tomorrow 12/04/2022 ? You will need to follow with Dr. Heller in 2 weeks in the office for wound check and x-rays. Please call his office upon discharge to schedule hospital follow-up appointment ? Additionally you have had difficulty with constipation, it is important that you eat a high-fiber diet with fresh fruits and vegetables, reduce dairy intake, meats, and processed foods and drink enough fluids each day. Make sure to drink plenty of water when you have more fiber as well. Additionally would recommend obtaining Metamucil powder [id number]. Take 1 rounded spoon 3 times daily before each meal. Would also take MiraLAX daily until you have a bowel movement and then only continue metamucil -Please call your primary care provider's office upon discharge to schedule a hospital follow up within 1 week. -For any concerning signs or symptoms please call 911 or proceed to the nearest emergency department Discharge Orders/Prescriptions Prescriptions: New aspirin 81 mg Tablet,Chewable 81 mg PO BIDCM 26 Days Qty: 54 0RF Continued multivitamin with minerals 1 EACH tablet 1 ea PO DAILY paroxetine HCl 30 mg tablet 30 mg PO DAILY coenzyme Q10 [CoQ-10] 30 mg Capsule 30 mg PO DAILY alprazolam 0.5 mg tablet 0.25 mg PO QHS Referrals / Follow Up: Kayley Desir MD [Primary Care Provider] - Within 1 Week Bjorn Heller MD [Med Staff - Active Staff] - Within 2 Weeks (You will need to follow with Dr. Heller in 2 weeks in the office for wound check and x-rays. Please call his office upon discharge to schedule hospital follow-up appointment) Disposition Disposition (needs filled in before D/C Order can be placed): Home Health Service Charges/Coding Visit Charges Inpatient E&M: 11457 Disch Hosp >30min
[2022-12-03 15:18] VITALS: BP 133/72; PULSE 74; RESP 18; TEMP 36.7; O2SAT 97
== END 2022-12-03 16:35 | disposition home health service (06) | DRG 522 ==
LOC: ED 16:30 → MS3 16:44
PROVIDERS: Specialist; Admitting Provider Student in an Organized Health Care Education/Training Program; Emergency Provider Emergency Medicine; PCP Internal Medicine; Visit Provider Internal Medicine
PROC: 0SRS01A Replacement of Left Hip Joint, Femoral Surface with Metal Synthetic Substitute, Uncemented, Open Approach (ICD-10-PCS; CPT 27125; principal; 2022-11-30 07:00)
DX: S72.012A Unspecified intracapsular fracture of left femur, initial encounter for closed fracture (principal); F03.911 Unspecified dementia, unspecified severity, with agitation; F05 Delirium due to known physiological condition; K59.00 Constipation, unspecified; W01.0XXA Fall on same level from slipping, tripping and stumbling without subsequent striking against object, initial encounter; R03.0 Elevated blood-pressure reading, without diagnosis of hypertension; R09.02 Hypoxemia; T40.2X5A Adverse effect of other opioids, initial encounter; Z85.72 Personal history of non-Hodgkin lymphomas
CPT/HCPCS: 36415; 71045; 71275; 72170; 73501; 73502; 73552; 76000; 80048; 85025; 86850; 86900; 86901; 88305; 88307; 88311; 93005; 94668; 94762; 97110; 97116; 97162; 97166; 97530; 97535; 99252; 99285; C1776; J7030; J7040; Q9967; A4216; G0463; J2405

== ENCOUNTER → 2023-01-07 | Outpatient (CLI) | payer MEDICARE, SELFPAY ==
--- NOTE | 2023-01-07 18:00 | MRI_ITS ---
EXAM: MR HEAD WITHOUT AND WITH INTRAVENOUS CONTRAST CLINICAL INDICATION: benign neoplasm of pituitary gland -- this is a revised order, needed with and without contrast TECHNIQUE: Multiplanar and multisequence MR images of the brain were obtained without and with intravenous contrast. This report was created using [employer] report [employer] technology. CONTRAST: IV 12ML CLARISCAN COMPARISON: MRI brain without contrast 07/20/2019. FINDINGS: BRAIN AND EXTRA-AXIAL SPACES: Unremarkable. No intra- or extra-axial hemorrhage. No evidence of acute infarct. No intracranial mass or mass effect. There is preservation of the love/white matter interface. Posterior fossa structures are unremarkable. Ventricles are appropriate for age. No hydrocephalus. Basal cisterns are patent. SELLA: Enlarged minimally enhancing pituitary gland with suprasellar extension causing mild elevation of the optic chiasm. This measures 1.4 x 1.3 x 1.7 cm. This is unchanged. AUDITORY SYSTEM: Unremarkable. The internal auditory canals are patent. BONES/JOINTS: Unremarkable. No discrete lytic or blastic abnormalities. SINUSES: Unremarkable as visualized. Clear. MASTOID AIR CELLS: Unremarkable as visualized. Clear. ORBITS: Unremarkable as visualized. Both globes, extraocular muscles, optic nerves and retrobulbar fat appear unremarkable. VASCULATURE: Unremarkable as visualized. Normal flow voids in the major intracranial circulation. 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 In my opinion, this is unchanged when compared to 07/20/2019. Electronically Signed: Zachary Melton MD at 15:25 EST ,
[2023-01-07 18:25] LABS: CREATININE FINGERSTICK < 0.9 mg/dL (0.55-1.02); EGFR FINGERSTICK > 60.0000 mL/min (>60)
== END | disposition home or self-care (01) ==
PROVIDERS: PCP Internal Medicine; Visit Provider Internal Medicine
DX: D35.2 Benign neoplasm of pituitary gland (principal); D35.3 Benign neoplasm of craniopharyngeal duct
CPT/HCPCS: 70553; A9575

== ENCOUNTER 2023-10-12 16:37 | Emergency (ER) | payer MEDICARE, SELFPAY ==
[2023-10-12 16:38] VITALS: BP 138/117; PULSE 77; RESP 15; TEMP 36.4; O2SAT 98; BMI 21.6
[2023-10-12 16:42] VITALS: BP 128/78
--- NOTE | 2023-10-12 16:47 | RAD_ITS ---
INDICATION: INJURY EXAMINATION/TECHNIQUE: X-RAY - RIGHT XR Foot Min 3 Views COMPARISON: None. FINDINGS: No acute fracture or malalignment. No blastic or lytic lesions. Mild scattered degenerative changes are seen. The soft tissues are unremarkable. RAD/Foot min 3 Views IMPRESSION: No acute radiographic abnormalities. Electronically Signed: Uli Smith MD at 17:51 EST ,
--- NOTE | 2023-10-12 17:46 | ED.VIS.LOWEX ---
HPI History of Present Illness Chief Complaint: Lower Extremity Injury Informant: patient, spouse/S.O. and family Narrative Narrative: Patient presents with right foot pain. Patient missed stepped about an hour or so ago. She hurt the lateral aspect of her right foot. She did not fall to the ground or hurt anything else. Knee hip back do not hurt. She never hit her head. She takes aspirin but no other blood thinners. She is able to bear weight using a walker but it is sore. PFSH PFSH Medical History Cancer Closed fracture of left hip Dementia Fall h/o back cancer H/O malignant neoplasm of brain Left displaced femoral neck fracture Osteoporosis Home Medications multivitamin with minerals 1 ea PO DAILY Check with primary doctor 01/14/19 [History Last Taken Unknown] alprazolam 0.5 mg tablet 0.25 mg PO QHS hallucinations 11/29/22 [History Last Taken Unknown] coenzyme Q10 30 mg capsule (CoQ-10) 30 mg PO DAILY 11/29/22 [History Last Taken Unknown] paroxetine HCl 30 mg tablet 30 mg PO DAILY 11/29/22 [History Last Taken Unknown] aspirin 81 mg chewable tablet 81 mg PO BIDCM 26 days #54 tabs 12/03/22 [Rx Last Taken Unknown] Allergy/AdvReac Type Severity Reaction Status Date / Time No Known Allergies Allergy Verified 11/29/22 15:17 Surgical History History of tonsillectomy Social History household members: spouse number of children: 5 current occupational status: retired history of recent travel: No Smoking Status: Never smoker alcohol intake: never substance use type: does not use well-balanced diet: daily or most days caffeine: Yes what type of physical activity do you participate in: none seatbelt use: always do you feel safe at home: Yes additional social history: - [employer] [facility] Constitutional Constitutional ED: Denies chills or fever(s) Cardiovascular Cardiovascular: Denies chest pain Respiratory/Chest Respiratory/Chest: Denies cough or dyspnea Gastrointestinal Gastrointestinal: Denies nausea or vomiting Musculoskeletal Musculoskeletal: Reports arthralgias; Denies back pain, myalgias or neck pain Integumentary Denies Abrasions or rash Neurologic Neurologic: Denies paresthesias or weakness Hematologic/Lymphatic Hematologic/Lymphatic: Denies easy bleeding or easy bruising Allergic/Immunologic Allergic/Immunologic ED: Denies urticaria EXAM Physical Exam Narrative Exam Narrative: General: Patient awake alert no acute distress. HEENT shows no sign of trauma. Neck is supple no tenderness or pain with motion. Lungs are clear bilaterally and saturations are normal at 98% on room air showing no hypoxia. Heart is regular. Abdomen is benign. Extremities: There is no pain with motion of the hips knees or ankles. No tenderness to the ankle. But she does have swelling and early ecchymosis on the right foot just over the proximal fifth metatarsal. But no visible deformity. Const Vital Signs: 10/12/23 16:38 10/12/23 16:42 Temperature 97.5 F L Temperature Source Temporal Pulse Rate 77 Respiratory Rate 15 Blood Pressure 138/117 H 128/78 H Blood Pressure Mean 124 94 Pulse Ox 98 Oxygen Delivery Method Room Air MDM MDM MDM Narrative Medical decision making narrative: My independent interpretation of the patient's three-view x-ray of her right foot does show a avulsion type fifth metatarsal fracture. This does not look like a true Garcia fracture. Final reading is pending. Plan will be postop shoe. I think this patient may have more trouble using a fracture boot. She can even use a supportive shoe as this is appropriate therapy for this fracture. It will need repeat x-rays to make sure it is healing. If final reading shows no fracture. However, with the patient's inversion injury, tenderness, swelling I can see a fracture line. This is consistent with an avulsion type not a true Garcia. I showed this to the family. I explained it does need follow-up imaging. Questions were answered. Radiography Diagnostic Testing: Clinical Impression(s) from Imaging Studies Foot X-Ray 10/12/23 16:47 IMPRESSION: No acute radiographic abnormalities. Electronically Signed: Uli Smith MD at 17:51 EST , Discharge Plan Triage Chief Complaint: Lower Extremity Injury ED Provider: Gume Pfeiffer Dx/Rx/DC Orders Clinical Impression: Fall from slip, trip, or stumble, Fracture of fifth metatarsal bone of right foot Instructions: Fifth Metatarsal Fx Prescriptions: No Action multivitamin with minerals 1 EACH tablet 1 ea PO DAILY paroxetine HCl 30 mg tablet 30 mg PO DAILY coenzyme Q10 [CoQ-10] 30 mg Capsule 30 mg PO DAILY alprazolam 0.5 mg tablet 0.25 mg PO QHS aspirin 81 mg Tablet,Chewable 81 mg PO BIDCM 26 Days Qty: 54 0RF Primary Care Provider: Kayley Desir Referrals: Kayley Desir MD [Primary Care Provider] - Shmuel Rodriguez DO [Med Staff - Active Staff] - 3-5 Days Disposition Disposition: Home, Self Care
== END 2023-10-12 18:39 | disposition home or self-care (01) ==
LOC: ED 18:04
PROVIDERS: Emergency Provider Emergency Medicine; PCP Internal Medicine; Referring Provider Emergency Medicine; Visit Provider Emergency Medicine
DX: S92.353A Displaced fracture of fifth metatarsal bone, unspecified foot, initial encounter for closed fracture (principal); W19.XXXA Unspecified fall, initial encounter
CPT/HCPCS: 73630; 99283

== ENCOUNTER 2024-06-02 13:11 | Emergency (ER) | payer MEDICARE, SELFPAY ==
[2024-06-02 13:11] VITALS: BP 114/63; PULSE 74; RESP 20; TEMP 36.1; O2SAT 92
--- NOTE | 2024-06-02 15:08 | EKG12_ITS ---
Test Reason : DYSRHYTHMIA Blood Pressure : / mmHG Vent. Rate : 069 BPM Atrial Rate : 069 BPM P-R Int : 196 ms QRS Dur : 088 ms QT Int : 424 ms P-R-T Axes : 078 -39 041 degrees QTc Int : 454 ms Normal sinus rhythm with sinus arrhythmia Left axis deviation Nonspecific ST and T wave abnormality Abnormal ECG Confirmed by KELLY HANNAH, MARGE ([id number]), image editor AYDIN MONTE ([id number]) on 06/03/2024 9:31:50 AM Referred By: REI Confirmed By:MARGE MENDOZA MD
[2024-06-02 15:11] VITALS: BP 126/54; PULSE 64; RESP 17; O2SAT 99
[2024-06-02 15:23] LABS: Absolute Lymphocyte Count 1.93 X10^3/uL (0.83-4.51); Absolute Neutrophil Count 6.2 X10^3/uL (2.0-7.7); Basophil# 0.04 X10^3/uL; Basophil% 0.4 % (0-1); Eosinophil# 0.08 X10^3/uL; Eosinophils% 0.9 % (0-5); Hematocrit 38.6 % (37-47); Hemoglobin 12.5 g/dL (12.0-15.0); Lymphocyte # 1.93 X10^3/ul (0.83-4.51); Lymphocyte % 21.3 % (19-41); Mean Corp Hgb Conc 32.4 g/dL (32-36); Mean Corpuscular Hgb 30.6 pg (27.0-32.0); Mean Corpuscular Volume 94.6 fL (81-99); Monocyte# 0.81 X10^3/uL; Monocyte% 8.9 % (0-10); NRBC Flagged by Analyzer 0 % (0-5); Neutrophil # 6.18 X10^3/uL (2.7-7.7); Neutrophil % 68.1 % (47-70); Platelet Count 231 K/mm3 (150-450); RBC Distribution Width CV 14.1 % (11.6-14.6); RBC Distribution Width SD 48.8 fl (35.1-43.9); Red Blood Count 4.08 M/mm3 (4.2-5.4); White Blood Count 9.1 K/mm3 (4.4-11.0)
[2024-06-02 15:25] VITALS: BP 122/55; BP 132/64; BP 143/71; PULSE 67; PULSE 68
[2024-06-02 16:07] LABS: Anion Gap 5 (5-15); BUN 18 mg/dL (7-18); BUN/Creat Ratio 17.6 RATIO (10-20); Calcium,Total 8.6 mg/dL (8.5-10.1); Chloride 110 mmol/L (98-107); Creatinine, Serum 1.02 mg/dL (0.55-1.02); EST Glomerular Filtration Rate 55 mL/min (>60); Est Glom Filt Rate - Afr Amer 66 mL/min (>60); Glucose 110 mg/dL (74-106); Potassium 4.1 mmol/L (3.5-5.1); Sodium Level 142 mmol/L (136-145)
[2024-06-02 17:00] VITALS: BP 139/57; PULSE 67; RESP 18; O2SAT 99
--- NOTE | 2024-06-02 17:04 | CT_ITS ---
STUDY: CT BRAIN WITHOUT CONTRAST REASON FOR EXAM: Female, 84 years old. Change in mental status RADIATION DOSAGE (If Supplied By Facility): CTDIvol = ( 44.99 ) mGy, DLP = ( 779.24 ) mGycm TECHNIQUE: Transaxial CT imaging of the brain was performed without administration of intravenous contrast material. Individualized dose optimization techniques were used for this CT. COMPARISON: MRI 01/07/2023 FINDINGS: Normal soft tissue structures. Normal calvarium. Stable appearance of a 1.7 cm mass in the sella turcica. Normal size ventricles and extra-axial spaces for the patient''s age. Normal white matter tracts of the cerebral hemispheres. Normal basal ganglia and thalami. Normal brainstem. Normal cerebellum. There is no intracranial hemorrhage. There are no findings of an acute ischemic infarction. Normal visualized paranasal sinuses. CT/Brain/Head without Contrast IMPRESSION: No acute abnormality or significant change. Stable pituitary mass. Electronically Signed: Moshe Tavares MD at 17:33 EDT ,
--- NOTE | 2024-06-02 17:05 | EX.ED.DYSGE1 ---
HPI History of Present Illness Chief Complaint: Syncope Detail of Chief Complaint: Cognitive impairment due to Alzheimer's with syncope Informant: patient Onset/Context/Timing Onset: Today and Hours Context: Sudden Onset Timing: Intermittent Quality: Syncope with no postictal state or abnormal muscle movement Location: Driveway Current Severity: Gone Maximum Severity: Moderate Worsened by: Unable to determine Relieved by: Unable Associated Symptoms Associated Symptoms: Drooling, altered mental status, Narrative Narrative: Patient is an 84-year-old woman. She has Alzheimer's dementia. She was insistent that she had to go to the end of the driveway to greet the kids coming home from school. Her granddaughter took her down trying to talk her to go back to the house. But she insisted on staying at the end of the driveway. She may have been at the end of the driveway for 30 minutes. Apparently it is hot and muggy outside. She started to collapse. Granddaughter helped her to the ground. There was drooling noted. There is no abnormal motor activity. There was no postictal state. There was no incontinence. Because the granddaughter had difficulty getting her up off the driveway she got the patient's and daughter, who is her aunt to help her get around. She was brought to the emergency department for evaluation. They feel she is at her baseline. Patient has significant cognitive impairment due to the Alzheimer's. Patient is unable to contribute at all to history. Spoke with her granddaughter by phone to obtain the history of the events that led to the collapse and what occurred after the collapse. Prior similar symptoms: No Recent Illness/Hospitalization: No PFSH PFS Medical History Depression Dementia with behavioral disturbance Cancer Osteoporosis Dementia Closed fracture of left hip Fall Left displaced femoral neck fracture h/o back cancer H/O malignant neoplasm of brain Home Medications ?Medication ?Instructions ?Recorded ?Last Taken ?Type diazepam 5 mg tablet (Valium) 5 mg PO BID PRN anxiety #60 tabs 04/14/24 Unknown Rx olanzapine 2.5 mg tablet 2.5 mg PO BID #60 tabs 04/14/24 Unknown Rx paroxetine HCl 40 mg tablet 40 mg PO QDAY #30 tabs 04/14/24 Unknown Rx risperidone 1 mg tablet (Risperdal) See Rx Instructions PO .COMPLEX 30 04/14/24 Unknown Rx days #120 tabs cranberry 500 mg capsule 500 mg PO BID 04/22/24 Unknown History erythromycin 5 mg/gram (0.5 %) eye 1 cm ophthalmic (eye) Q6H #1 g 04/22/24 Unknown Rx ointment Allergy/AdvReac Type Severity Reaction Status Date / Time No Known Allergies Allergy Verified 06/02/24 13:19 Family History Other Cancer Colon cancer Lupus Surgical History History of tonsillectomy Social History household members: spouse number of children: 5 current occupational status: retired history of recent travel: No Smoking Status: Never smoker alcohol intake: never substance use type: does not use well-balanced diet: daily or most days caffeine: Yes what type of physical activity do you participate in: none seatbelt use: always do you feel safe at home: Yes additional social history: - [employer]IR[employer] ROS ED Constitutional Constitutional ED: Denies chills, fever(s), subjective, sweats or weight loss Eyes Eyes: Denies blurry vision, change in vision or diplopia ENT ENT ED: Denies ear pain, rhinorrhea or sore throat Cardiovascular Cardiovascular: Denies chest pain or palpitations Respiratory/Chest Respiratory/Chest: Denies cough, dyspnea or dyspnea on exertion Gastrointestinal Gastrointestinal: Denies abdominal pain, constipation, nausea or vomiting Genitourinary Genitourinary ED: Denies dysuria, hematuria or urinary frequency Musculoskeletal Musculoskeletal: Denies arthralgias, back pain, myalgias or neck pain Integumentary Denies rash Neurologic Neurologic: Denies headache(s) or paresthesias Endocrine Endocrinology: Reports cold intolerance and heat intolerance Hematologic/Lymphatic Hematologic/Lymphatic: Reports systems reviewed and no addt'l complaints, except as documented Allergic/Immunologic Allergic/Immunologic ED: Reports mouth swelling and tongue swelling EXAM Physical Exam Const Vital Signs: 06/02/24 13:11 06/02/24 13:18 06/02/24 15:11 Temperature 96.9 F L Temperature Source Temporal Pulse Rate 74 64 Pulse Rate [Lying] Pulse Rate [Sitting (for 1 minute prior to obtaining)] Pulse Rate [Standing (for 1 minute prior to obtaining)] Respiratory Rate 20 H 17 Respiratory Effort Normal Respiratory Pattern Normal Blood Pressure 114/63 126/54 H Blood Pressure [Lying] Blood Pressure [Sitting (for 1 minute prior to obtaining)] Blood Pressure [Standing (for 1 minute prior to obtaining)] Blood Pressure Mean 80 78 Blood Pressure Mean [Lying] Blood Pressure Mean [Sitting (for 1 minute prior to obtaining)] Blood Pressure Mean [Standing (for 1 minute prior to obtaining)] Pulse Ox 92 99 Oxygen Delivery Method Room Air Room Air 06/02/24 15:25 06/02/24 17:00 Temperature Temperature Source Pulse Rate 67 Pulse Rate [Lying] 68 Pulse Rate [Sitting (for 1 minute prior to obtaining)] 67 Pulse Rate [Standing (for 1 minute prior to obtaining)] 68 Respiratory Rate 18 Respiratory Effort Respiratory Pattern Blood Pressure 139/57 H Blood Pressure [Lying] 122/55 H Blood Pressure [Sitting (for 1 minute prior to obtaining)] 132/64 H Blood Pressure [Standing (for 1 minute prior to obtaining)] 143/71 H Blood Pressure Mean 84 Blood Pressure Mean [Lying] 77 Blood Pressure Mean [Sitting (for 1 minute prior to obtaining)] 86 Blood Pressure Mean [Standing (for 1 minute prior to obtaining)] 95 Pulse Ox 99 Oxygen Delivery Method Room Air Positive well nourished and well developed Constitutional Narrative: Patient has altered mental status, which is her baseline at [address] This is her baseline as well. General Appearance ED: well developed and NAD; Negative for cyanotic, diaphoretic or pallor HEENT Reports TM's clear and dry mucous membranes Negative for trauma or tenderness Tympanic Membrane ED: Yes TM's clear Mouth ED: Yes dry mucous membranes Mouth: dry mucous membranes Eyes PERRL and EOMs intact bilaterally General Eye ED: Negative for pale conjunctiva or scleral icterus Neck no lymphadenopathy, supple and no JVD Chest Wall inspection of chest normal and palpation of chest normal Resp normal respiratory effort and clear to auscultation bilaterally Cardio regular rate, regular rhythm, S1 normal heart sound, S2 normal heart sound and no murmurs GI normal to inspection, nondistended, normoactive bowel sounds, non-tender, non-distended and no masses; Negative for hepatosplenomegaly Auscultation: normoactive bowel sounds Extremity normal to inspection General Extremety ED: Negative for edema or tenderness General Extremity: Negative for edema Neuro No oriented x3, CN's II-XII intact bilaterally and no sensory deficits noted Sensorium / Orientation: orientation impaired; Negative for alert Psych Psych Narrative: Mood is depressed affect is flat. She almost has a mask facial expression suggestive of Parkinson's. Skin no rashes or lesions noted, no wounds and No skin turgor normal General Skin Exam: Negative for jaundice or pallor MDM MDM MDM Narrative Medical decision making narrative: This may represent orthostatic hypotension due to the fact he was out in the hot heat versus vasovagal versus cardiac dysrhythmia. Because of the drooling and altered mental status will obtain a CT of the head. Once that is read will speak with family regarding CODE STATUS and what is appropriate or not appropriate for this profoundly demented woman due to Alzheimer's disease. History & Record Review Additional record(s) reviewed:: Other Lab Data Attestation: I reviewed the patient's lab results. Lab results narrative: CBC is normal. BMP is normal. Labs: Laboratory Results - last 24 hr 06/02/24 06/02/24 12:50 15:37 WBC 9.1 RBC 4.08 L Hgb 12.5 Hct 38.6 MCV 94.6 MCH 30.6 MCHC 32.4 RDW Std Deviation 48.8 H RDW Coeff of Saundra 14.1 Plt Count 231 MPV 11.0 Immature Gran % (Auto) 0.400 Neut % (Auto) 68.1 Lymph % (Auto) 21.3 [place] % (Auto) 8.9 Eos % (Auto) 0.9 Baso % (Auto) 0.4 Absolute Neuts (auto) 6.2 Absolute Lymphs (auto) 1.93 Nucleated RBC % 0 Sodium 142 Potassium 4.1 Chloride 110 H Carbon Dioxide 27.0 Anion Gap 5 BUN 18 Creatinine 1.02 Est GFR (MDRD) Af Amer 66 Est GFR (MDRD) Non-Af 55 L BUN/Creatinine Ratio 17.6 Glucose 110 H Calcium 8.6 Radiography Diagnostic Testing: Clinical Impression(s) from Imaging Studies Brain CT 06/02/24 17:04 IMPRESSION: No acute abnormality or significant change. Stable pituitary mass. Electronically Signed: Moshe Tavares MD at 17:33 EDT , Discharge Plan Triage Chief Complaint: Syncope ED Provider: Josh Reynaga Dx/Rx/DC Orders Clinical Impression: Syncope and collapse, Dementia, Dementia with behavioral disturbance, Acute alteration in mental status Instructions: ED ALOC, ED Near-Fainting, Uncertain Cause Prescriptions: No Action diazepam [Valium] 5 mg tablet 5 mg PO BID PRN (Reason: anxiety) Qty: 60 1RF olanzapine 2.5 mg tablet 2.5 mg PO BID Qty: 60 1RF risperidone [Risperdal] 1 mg tablet See Rx Instructions PO .COMPLEX 30 Days Qty: 120 2RF Rx Instructions: 1.5 mg orally qAM, 1 mg orally qPM, 1.5 mg qHS paroxetine HCl 40 mg tablet 40 mg PO QDAY Qty: 30 2RF cranberry 500 mg capsule 500 mg PO BID Rx Instructions: administer with meals erythromycin 5 mg/gram (0.5 %) ointment 1 cm ophthalmic (eye) Q6H Qty: 1 0RF Rx Instructions: Apply 1 cm ribbon to affected eye at least 4x per day for 7 days. Primary Care Provider: Gin Panchal Referrals: Gin Panchal NP-C [Primary Care Provider] - As Needed Print Language: Botswanan Disposition Disposition: Home, Self Care
[2024-06-02] MEDS: 0.9% Normal Saline (1000mL) 1,000 ML 999 ML IV (17:30)
[2024-06-02 19:00] VITALS: BP 133/69; PULSE 70; RESP 16; TEMP 36.6; O2SAT 97
== END 2024-06-02 19:22 | disposition home or self-care (01) ==
PROVIDERS: Emergency Provider Emergency Medicine; PCP Nurse Practitioner Family; Visit Provider Emergency Medicine
DX: R55 Syncope and collapse (principal); F02.80 Dementia in other diseases classified elsewhere, unspecified severity, without behavioral disturbance, psychotic disturbance, mood disturbance, and anxiety; G30.9 Alzheimer's disease, unspecified; R41.82 Altered mental status, unspecified
CPT/HCPCS: 70450; 80048; 85025; 93005; 99285; A4216

== ENCOUNTER 2024-08-31 15:16 | Emergency (ER) | payer MEDICARE, SELFPAY ==
[2024-08-31 15:17] VITALS: BP 124/96; PULSE 74; RESP 16; TEMP 36.4; O2SAT 97
[2024-08-31 17:16] VITALS: BP 128/89; PULSE 85; RESP 16; TEMP 36.6; O2SAT 98
[2024-08-31 19:42] VITALS: BP 148/79; PULSE 80; RESP 16; TEMP 36.4; O2SAT 98
--- NOTE | 2024-08-31 19:58 | RAD_ITS ---
EXAM: XR ABDOMEN, 1 VIEW CLINICAL INDICATION: constipation TECHNIQUE: Frontal supine view of the abdomen/pelvis. COMPARISON: Pelvis radiograph, 11/29/2022 FINDINGS: GASTROINTESTINAL TRACT: Moderate to large amount of stool in the distal colon and rectum. ORGANS: Normal as visualized. No organomegaly. No abnormal calcifications. BONES/JOINTS: Status post left hip arthroplasty. Paia left curvature of the lumbar spine and associated degenerative changes. SOFT TISSUES: No acute pathology. OTHER FINDINGS: Status post bilateral mammoplasty implants with capsular calcifications. RAD/Abdomen Single View IMPRESSION: Moderate to large amount of stool in the distal colon and rectum. No bowel obstruction. Electronically Signed: John Chapin DO at 20:24 EDT ,
--- NOTE | 2024-08-31 21:29 | EDS_ITS ---
HPI History of Present Illness Chief Complaint: Constipation Informant: patient and family Narrative Narrative: Patient is an 84-year-old female with history of dementia presenting with constipation and urinary difficulty. She is on a bowel and the past 5 days. Daughter notes she has had a hard time urinating. She is under the care of palliative care. Daughter tried disimpaction as well as 2 suppositories with no significant results. They brought her here for further treatment and evaluation. Patient was complain of some mild nausea at 230 today. She ate breakfast normally and had a protein bar and hydration drink for lunch. No fever reported. No report of any vomiting. No other complaints or concerns at this time. [facility] Medical History Depression Dementia with behavioral disturbance Cancer Osteoporosis Dementia Closed fracture of left hip Fall Left displaced femoral neck fracture h/o back cancer H/O malignant neoplasm of brain Home Medications ?Medication ?Instructions ?Recorded ?Last Taken ?Type propranolol 10 mg tablet 10 mg PO TID PRN anxious #90 tabs 06/16/24 Unknown Rx sennosides 8.6 mg tablet (Senokot) 8.6 mg PO QDAY 07/12/24 Unknown History alprazolam 1 mg tablet 1 mg PO TID PRN anxiety 30 days 08/10/24 Unknown Rx #90 tabs cholecalciferol (vitamin D3) 25 25 mcg PO QDAY 08/10/24 Unknown History mcg (1,000 unit) capsule cranberry 500 mg capsule 500 mg PO QDAY 08/10/24 Unknown History magnesium 250 mg tablet 250 mg PO QDAY 08/10/24 Unknown History quetiapine 50 mg tablet 50 mg PO TID 30 days #270 tabs 08/10/24 Unknown Rx sertraline 50 mg tablet 50 mg PO DAILY #90 tabs 08/10/24 Unknown Rx Allergy/AdvReac Type Severity Reaction Status Date / Time No Known Allergies Allergy Verified 07/12/24 12:36 Family History Other Cancer Colon cancer Lupus Surgical History History of tonsillectomy Social History household members: spouse number of children: 5 current occupational status: retired history of recent travel: No Smoking Status: Never smoker alcohol intake: never substance use type: does not use well-balanced diet: daily or most days caffeine: Yes what type of physical activity do you participate in: none seatbelt use: always do you feel safe at home: Yes additional social history: - [employer] GIR[employer] ROS ED Review of Systems ROS Unobtainable: other Details: dementia Constitutional Constitutional ED: Denies fever(s) Gastrointestinal Gastrointestinal: Reports constipation and nausea; Denies vomiting Hematologic/Lymphatic Hematologic/Lymphatic: Denies easy bleeding or easy bruising EXAM Physical Exam Const Vital Signs: 08/31/24 15:17 08/31/24 17:16 08/31/24 19:42 Temperature 97.5 F L 97.8 F 97.6 F L Temperature Source Temporal Temporal Oral Pulse Rate 74 85 80 Respiratory Rate 16 16 16 Blood Pressure 124/96 H 128/89 H 148/79 H Blood Pressure Mean 105 102 102 Pulse Ox 97 98 98 Oxygen Delivery Method Room Air Room Air 08/31/24 23:00 Temperature Temperature Source Pulse Rate 81 Respiratory Rate 16 Blood Pressure 136/65 H Blood Pressure Mean 88 Pulse Ox 98 Oxygen Delivery Method Room Air Positive well nourished General Appearance ED: NAD HEENT Reports moist mucous membranes Resp normal respiratory effort and clear to auscultation bilaterally Cardio regular rate and regular rhythm GI normal to inspection, nondistended, normoactive bowel sounds and non-tender GI Narrative: Impaction present on rectal exam with brown stool Auscultation: normoactive bowel sounds Extremity normal to inspection Neuro Sensorium / Orientation: alert Motor Exam: general weakness Psych mental status grossly normal Skin no rashes or lesions noted and no wounds MDM MDM MDM Narrative Medical decision making narrative: Patient for constipation. Protocol x-ray obtained reviewed by myself as well as radiology. No bowel obstruction with there is moderate to large amount of stool in the distal colon and rectum. Patient is fecal impaction rectal exam. Manual disimpaction performed. Patient tolerated this well. Soapsuds enema then obtained patient has a large bowel movement. Afterwards patient able to urinate some. Bladder scan however still shows 650 cc of urine in the bladder. Patient attempted to urinate again and urinate out another 400 cc. Discussed with daughter whether we should perform a straight catheterization, let this be versus place a Martínez catheter. As patient's care is really palliative at this point and with her dementia I think that Martínez catheter would be more trouble than helpful. As patient is able to mostly empty her bladder I do not think she requires a straight cath at this time. Also discussed that even if we do straight catheter it does not sound like family would intervene with any type of procedure so it is of low utility. I think this is quite reasonable given the patient's age and comorbidities. Urinalysis is not really consistent with infection but there is 3+ bacteria so we will send for culture. Patient will follow-up with palliative medicine. Daughter agreeable with plan of care. Patient discharged home in improved and stable condition. Lab Data Labs: Laboratory Results - last 24 hr 08/31/24 23:28 Urine Color Yellow Urine Clarity Clear Urine pH 6.5 Ur Specific Reed[place] 1.015 Urine Protein Negative Urine Glucose (UA) Normal Urine Ketones Negative Urine Occult Blood 50 H Urine Nitrite Negative Urine Bilirubin Negative Urine Urobilinogen Normal Ur Leukocyte Esterase 25 H Urine RBC 0-5 SEEN Urine WBC 0 SEEN Ur Squamous Epith Cells 0 SEEN Urine Bacteria 3+ Urine Mucus 0 SEEN Radiography Diagnostic Testing: Clinical Impression(s) from Imaging Studies KUB X-Ray 08/31/24 19:58 IMPRESSION: Moderate to large amount of stool in the distal colon and rectum. No bowel obstruction. Electronically Signed: John Chapin DO at 20:24 EDT , Discharge Plan Triage Chief Complaint: Constipation Other Complaint: Complaint ED Provider: Alexa Gallo Dx/Rx/DC Orders Clinical Impression: Constipation, Acute urinary retention Instructions: ED Constipation (Adult) Prescriptions: No Action cranberry 500 mg capsule 500 mg PO QDAY Rx Instructions: administer with meals sennosides [Senokot] 8.6 mg tablet 8.6 mg PO QDAY cholecalciferol (vitamin D3) 25 mcg (1,000 unit) capsule 25 mcg PO QDAY magnesium 250 mg tablet 250 mg PO QDAY alprazolam 1 mg tablet 1 mg PO TID PRN (Reason: anxiety) 30 Days Qty: 90 2RF sertraline 50 mg tablet 50 mg PO DAILY Qty: 90 1RF quetiapine 50 mg tablet 50 mg PO TID 30 Days Qty: 270 1RF propranolol 10 mg tablet 10 mg PO TID PRN (Reason: anxious) Qty: 90 1RF Primary Care Provider: Gin Panchal Referrals: Gin Panchal, [employer]-C [Primary Care Provider] - Activity Restrictions/Additional Instructions: I will call you with the urinalysis results. Continue taking senna and other medications/laxatives recommended by palliative medicine to help with further constipation. Print Language: Luxembourgish Disposition Disposition: Home, Self Care Discharge Date/Time: 09/01/24 00:05
[2024-08-31 23:00] VITALS: BP 136/65; PULSE 81; RESP 16; O2SAT 98
[2024-08-31 23:32] LABS: Mucous, Urine 0 SEEN /hpf (<or=2+); Squamous Epithelial Cells - UA 0 SEEN /hpf (5-10); White Blood Cells 0 SEEN /hpf (0-5)
[2024-08-31 23:38] LABS: Color, Urine Yellow (Yellow); Glucose, Dipstick Normal (Normal); Ketone-Dipstick Negative (Negative); Leukocyte Esterase-Dipstick 25 /ul (Negative); Nitrite-Dipstick Negative (Negative); Occult Blood-Urine 50 /ul (Negative); Protein-Dipstick Negative (Negative); Specific Gravity, Urine 1.015 (1.002-1.030); Urine Bilirubin Dipstick Negative (Negative); Urine Clarity Clear (Clear); Urine Urobilinogen Normal (Normal); Urine pH 6.5 (5.0 - 8.0)
[2024-08-31 23:54] LABS: Bacteria 3+ /hpf (None Seen); Red Blood Cells-Urine 0-5 SEEN /hpf (0-5)
== END 2024-09-01 00:05 | disposition home or self-care (01) ==
PROVIDERS: Emergency Provider Emergency Medicine; PCP Nurse Practitioner Family; Visit Provider Emergency Medicine
DX: K59.00 Constipation, unspecified (principal); F03.90 Unspecified dementia, unspecified severity, without behavioral disturbance, psychotic disturbance, mood disturbance, and anxiety; R33.9 Retention of urine, unspecified
CPT/HCPCS: 74018; 81001; 87086; 87088; 99284

== ENCOUNTER → 2024-09-04 | Outpatient (CLI) | payer MEDICARE, SELFPAY | END | disposition home or self-care (01) | LOC: LABSPEC 14:02 | PROVIDERS: PCP Nurse Practitioner Family; Referring Provider Nurse Practitioner Family; Visit Provider Nurse Practitioner Family | DX: N39.0 Urinary tract infection, site not specified (principal) | CPT/HCPCS: 87086; 87088; 87186 ==

== ENCOUNTER → 2024-09-05 | Outpatient (CLI) | payer MEDICARE, SELFPAY | END | disposition home or self-care (01) | LOC: LABSPEC 07:34 | PROVIDERS: PCP Nurse Practitioner Family; Referring Provider Nurse Practitioner Family; Visit Provider Nurse Practitioner Family | DX: N39.0 Urinary tract infection, site not specified (principal) ==